=== PATIENT | male | born 1960 | race Caucasian/White ===

== ENCOUNTER 2017-08-11 17:04 | Inpatient (IN) | payer OTHER ==
[~2017-08-11] VITALS: Ht 182.9 cm; Wt 113.4 kg
[2017-08-11] VITALS (7 sets, daily range): BP systolic 155–176; BP diastolic 73–101; PULSE 90–104; RESP 20–24; TEMP 98.1–98.8; O2SAT 95–98
[~2017-08-11 17:04] MED LIST: ASPI81TA82 PO; DIPH50TA PO; FLUV100C PO; GLIP5 PO; HYDR12.56 PO; HYDR1CAP30 PO; LOSA100T PO; METF500 PO; NICO2GUM68 TOP; ONDA4TAB7 PO; PRAV40TA2 PO; TRIA0.02 TOP
[2017-08-11] MEDS ORDERED: SODIUM CHLOR 0.9% 1000 ML INJ 1,000 ML IV ONE (17:22)
--- NOTE | 2017-08-11 17:27 | PD ---
HPI Chief Complaint: GI Complaint Time Seen by Provider: 17:11 Travel History International Travel<30 days: No Contact w/Intl Traveler<30days: No Traveled to known affect area: No History of Present Illness HPI 57-year-old male presents to the emergency department via EMS sent from the [facility]. Apparently, the patient had lab work and a routine visit done yesterday at the [facility]. He went back today for evaluation nausea and vomiting since Wednesday. He reports 3 episodes of vomiting in the past 24 hours. He was sent here for abnormal labs. I was told that he was here rhabdomyolysis, but review of labs shows creatinine of 7.9. Cardiac EMS, her blood sugar 45 on their arrival. They gave him amp of D50. The patient reports history of diabetes and is on metformin and glipizide. He has been taking his medications recently, but has not been eating due to nausea and vomiting. He states that he has been laying in bed and states this is due to his depression. Patient denies any headache. No fevers or chills. He denies any chest pain or shortness of breath. He denies any abdominal pain. He states his bowels have been irregular. He reports one bowel movement this morning which was smaller than normal, but no blood in his stool. Patient reports history of diabetes type 2, hypertension, hyperlipidemia, depression. PFSH Past Medical History Anxiety: Yes Depression: Yes High Cholesterol: Yes Diabetes: Yes Hypertension: Yes Triglycerides - High: Yes Social History Alcohol Use: No Tobacco Use: No (QUIT 1986) Substance Use: No (PATIENT DENIES) Allergies-Medications (Allergen,Severity, Reaction): Coded Allergies: lisinopril (Unverified Adverse Reaction, Intermediate, DIZZINESS, 05/25/17) Per pt & [facility] paperwork. Reported Meds & Prescriptions Reported Meds & Active Scripts Active Reported Triamcinolone Acetonide 0.025 % Cre 1 Applic TOP BID APPLY TO : Ondansetron Odt (Ondansetron HCl) 4 Mg Tab 4 Mg PO Q8HR PRN Hydroxyzine Pamoate 25 Mg Cap 25 Mg PO HS Glipizide 5 Mg Tab 2.5 Mg PO BID Clotrimazole Antifungal (Clotrimazole) 1 %/F Cre 1 Applic TOP ONCE APPLY TO: Diphenhydramine Hcl (Diphenhydramine HCl) 50 Mg Cap 50 Mg PO HS PRN Glucophage 500 mg (Metformin HCl) 500 Mg Tab 1,000 Mg PO BIDPC Losartan Potassium 100 MG (Losartan Potassium) 100 Mg Tab 0.5 Tab PO HS Fluvoxamine Maleate ER (Fluvoxamine Maleate) 100 Mg Cap 100 Mg PO DIRECTED Fluvoxamine Maleate 50mg tab - take 3x tablets PO daily for 7 days, then take 4x tablets PO daily for Depression. Aspir-81 (Aspirin) 81 Mg Tab 81 Mg PO DAILY Pravastatin Sodium 40 Mg Tab 80 Mg PO HS Hctz (Hydrochlorothiazide) 12.5 Mg Cap 12.5 Mg PO DAILY Review of Systems Except as stated in HPI: all other systems reviewed are Neg Physical Exam Narrative GENERAL: Well-nourished, well-developed male patient, ambulatory. Afebrile. SKIN: Focused skin assessment warm/dry. HEAD: Normocephalic. Atraumatic. EYES: No scleral icterus. No injection or drainage. NECK: Supple, trachea midline. No JVD or lymphadenopathy. CARDIOVASCULAR: Regular rate and rhythm without murmurs, gallops, or rubs. RESPIRATORY: Breath sounds equal bilaterally. No accessory muscle use. Lungs sounds are clear to auscultation. GASTROINTESTINAL: Abdomen soft, non-tender, nondistended. No abdominal pain to palpation. MUSCULOSKELETAL: No cyanosis, or edema. BACK: Nontender without obvious deformity. No CVA tenderness. Data Data Last Documented VS Vital Signs Date Time Temp Pulse Resp B/P (MAP) Pulse Ox O2 Delivery O2 Flow Rate FiO2 08/11/17 18:22 93 21 176/101 (126) 95 Room Air 08/11/17 17:11 98.4 Orders Orders Electrocardiogram (08/11/17 17:22) Complete Blood Count With Diff (08/11/17 17:22) Comprehensive Metabolic Panel (08/11/17 17:22) Magnesium (Mg) (08/11/17 17:22) Urinalysis - C+S If Indicated (08/11/17 17:22) Chest, Single Ap (08/11/17 17:22) Blood Glucose (08/11/17 17:22) Ecg Monitoring (08/11/17 17:22) Iv Access Insert/Monitor (08/11/17 17:22) Oximetry (08/11/17 17:22) Ondansetron Inj (Zofran Inj) (08/11/17 17:30) Sodium Chloride 0.9% Flush (Ns Flush) (08/11/17 17:30) Sodium Chlor 0.9% 1000 Ml Inj (Ns 1000 M (08/11/17 17:22) Creatine Kinase (Cpk) (08/11/17 17:22) Dextrose 50% In Jessica (Vial) Inj (D50w (Vi (08/11/17 18:16) Dextrose 50% In Jessica (Syr) Inj (D50w (Syr (08/11/17 18:30) Dextrose 5% In Wate 1000ml Inj (D5w 1000 (08/11/17 18:30) Urinary Catheter Insert/Apply (08/11/17 18:31) Labs Laboratory Tests Test 08/11/17 17:25 White Blood Count 15.0 TH/MM3 Red Blood Count 4.73 MIL/MM3 Hemoglobin 13.8 GM/DL Hematocrit 41.3 % Mean Corpuscular Volume 87.2 FL Mean Corpuscular Hemoglobin 29.1 PG Mean Corpuscular Hemoglobin Concent 33.4 % Red Cell Distribution Width 13.7 % Platelet Count 245 TH/MM3 Mean Platelet Volume 9.2 FL Neutrophils (%) (Auto) 89.3 % Lymphocytes (%) (Auto) 5.5 % Monocytes (%) (Auto) 5.0 % Eosinophils (%) (Auto) 0.0 % Basophils (%) (Auto) 0.2 % Neutrophils # (Auto) 13.3 TH/MM3 Lymphocytes # (Auto) 0.8 TH/MM3 Monocytes # (Auto) 0.8 TH/MM3 Eosinophils # (Auto) 0.0 TH/MM3 Basophils # (Auto) 0.0 TH/MM3 CBC Comment DIFF FINAL Differential Comment Blood Urea Nitrogen 63 MG/DL Creatinine 10.07 MG/DL Random Glucose 36 MG/DL Total Protein 7.4 GM/DL Albumin 3.4 GM/DL Calcium Level 9.1 MG/DL Magnesium Level 2.1 MG/DL Alkaline Phosphatase 53 U/L Aspartate Amino Transf (AST/SGOT) 17 U/L Alanine Aminotransferase (ALT/SGPT) 25 U/L Total Bilirubin 0.4 MG/DL Sodium Level 134 MEQ/L Potassium Level 5.1 MEQ/L Chloride Level 98 MEQ/L Carbon Dioxide Level 17.2 MEQ/L Anion Gap 19 MEQ/L Estimat Glomerular Filtration Rate 5 ML/MIN Total Creatine Kinase 122 U/L MDM Medical Decision Making Medical Screen Exam Complete: Yes Emergency Medical Condition: Yes Medical Record Reviewed: Yes Interpretation(s) chest x-ray - CONCLUSION: No acute disease. Differential Diagnosis Abnormal labs versus acute kidney injury versus acute renal failure versus dehydration Narrative Course 57-year-old male presents to the emergency department sent by the [facility] for nausea and vomiting since Wednesday, 4 days ago. Apparently, their lab work, creatinine was elevated. Patient was found to be hypoglycemic and was given amp of D50 by EMS. EKG, CBC, CMP, magnesium, UA, CK are ordered and pending. Patient is given normal saline 1 L IV bolus, Zofran 4 mg IV. Recheck of blood glucose is 73. Patient is given meal to raise blood glucose. EKG shows SR, HR 99. CBC shows leukocytosis of 15.0. CMP shows carbon dioxide 17.2, anion gap 19, BUN 63, creatinine 10.07, glucose 36. Magnesium is 2.1. CK is 122. Chest x-ray shows no acute disease. Recheck of blood glucose is 27. Patient is given another amp of D50 and is started on a D5 drip. Albarado is ordered. Patient will be admitted to intensivists. Dr. Kent accepted admission. Diagnosis Primary Impression: Acute renal failure Qualified Codes: N17.9 - Acute kidney failure, unspecified Additional Impression: Hypoglycemia Admitting Information Admitting Physician Requests: Admit Sonia Cruz Aug 11, 2017 17:27
[2017-08-11] MEDS ORDERED: ONDANSETRON HCL 4 MG/2 ML VIAL IVP ONE (17:30)
[2017-08-11] MEDS ORDERED: SODIUM CHLORIDE 0.9% FLUSH 10 ML FLUSH IVF PRN (17:30)
[2017-08-11 17:54] LABS: AUTOMATED NEUTROPHIL # 13.3 TH/MM3 (1.8-7.7); BASOPHIL % 0.2 % (0.0-2.0); HEMATOCRIT 41.3 % (39.0-51.0); HEMOGLOBIN 13.8 GM/DL (13.0-17.0); LYMPH % 5.5 % (9.0-44.0); LYMPHOCYTE # 0.8 TH/MM3 (1.0-4.8); MEAN CELL VOLUME 87.2 FL (80.0-100.0); MEAN CORPUSCULAR HEMOGLOBIN 29.1 PG (27.0-34.0); MEAN CORPUSCULAR HGB CONC 33.4 % (32.0-36.0); MEAN PLATELET VOLUME 9.2 FL (7.0-11.0); MONOCYTE # 0.8 TH/MM3 (0-0.9); NEUT % 89.3 % (16.0-70.0); PLATELET COUNT 245 TH/MM3 (150-450); RED BLOOD COUNT 4.73 MIL/MM3 (4.50-5.90); RED CELL DISTRIBUTION WIDTH 13.7 % (11.6-17.2)
[2017-08-11] MEDS ORDERED: DEXTROSE 50% IN WATER 50 ML VIAL(D50) ONE (18:16)
--- NOTE | 2017-08-11 18:17 | RADRPT ---
EXAM DATE/TIME: 08/11/2017 17:35 [facility] COMPARISON: No previous studies available for comparison. INDICATIONS : Short of breath. MEDICAL HISTORY : Hypertension. Hypercholesterolemia. Diabetic. SURGICAL HISTORY : None. ENCOUNTER: Initial ACUITY: 1 day PAIN SCORE: Non-responsive. LOCATION: Bilateral chest FINDINGS: A single view of the chest demonstrates the lungs to be symmetrically aerated without evidence of mas s, infiltrate or effusion. The cardiomediastinal contours are unremarkable. Osseous structures are intact. There are overlying electrocardiogram leads and oxygen tubing. CONCLUSION: No acute disease. Javon Garcia MD on August 11, 2017 at 18:15 Board Certified Radiologist. This report was verified electronically.
[2017-08-11 18:24] LABS: ALBUMIN 3.4 GM/DL (3.4-5.0); ALKALINE PHOSPHATASE 53 U/L (45-117); ALT (GPT) 25 U/L (12-78); AST (GOT) 17 U/L (15-37); BICARBONATE 17.2 MEQ/L (21.0-32.0); BLOOD UREA NITROGEN 63 MG/DL (7-18); CALCIUM 9.1 MG/DL (8.5-10.1); CHLORIDE 98 MEQ/L (98-107); GLOMERULAR FILTRATION RATE 5 ML/MIN (>89); MAGNESIUM 2.1 MG/DL (1.5-2.5); SODIUM (NA) 134 MEQ/L (136-145); TOTAL BILIRUBIN ADULT 0.4 MG/DL (0.2-1.0); TOTAL PROTEIN 7.4 GM/DL (6.4-8.2)
[2017-08-11 18:29] LABS: CREATININE 10.07 MG/DL (0.60-1.30); GLUCOSE,RANDOM 36 MG/DL (74-106)
[2017-08-11] MEDS ORDERED: DEXTROSE 5% IN WATE 1000ML INJ 1,000 ML IV SCH (18:30)
[2017-08-11] MEDS ORDERED: DEXTROSE 50% IN WATER 50 ML SYRINGE IV PUSH ONE (18:30)
[2017-08-11] MEDS ORDERED: FLUT50SP EACH NARE (18:35)
[2017-08-11] MEDS ORDERED: GLIP5TAB8 PO (18:35)
[2017-08-11] MEDS ORDERED: RANI150T PO (18:35)
[2017-08-11] MEDS ORDERED: HYDR12.56 PO (18:35)
[2017-08-11] MEDS ORDERED: METF1000 PO (18:35)
[2017-08-11] MEDS ORDERED: PRAV80TA2 PO (18:35)
[2017-08-11] MEDS ORDERED: LOSA50TA PO (18:35)
[2017-08-11] MEDS ORDERED: RISP2TAB2 PO (18:35)
[2017-08-11] MEDS ORDERED: FLUO20CA12 PO (18:35)
[2017-08-11] MEDS ORDERED: SODIUM CHLOR 0.9% 1000 ML INJ 1,000 ML IV SCH (19:01)
--- NOTE | 2017-08-11 19:10 | HHI.HP ---
[facility] Service Critical Care Medicine [facility] Diagnosis Acute renal failure; hypoglycemia Diagnosis: Travel History International Travel<30 Days: No Contact w/Intl Traveler <30 Da: No Traveled to Known Affected Are: No History of Present Illness 57-year-old male presents from the where he had a lab work and a routine visit done yesterday. He went back today for evaluation nausea and vomiting since Wednesday. He reports 3 episodes of vomiting in the past 24 hours. He was told that he has rhabdomyolysis and was sent here to the emergency department. He was also found to be severely hypoglycemic with a blood sugar at 45. The patient reports history of diabetes and is on metformin and glipizide. He has been taking his medications, but has not been eating due to nausea and vomiting. He states that he has been laying in bed and states this is due to his depression. Patient denies any headache. No fevers or chills. He denies any chest pain or shortness of breath. He denies any abdominal pain. Review of Systems Constitutional: COMPLAINS OF: Change in appetite, DENIES: Diaphoretic episodes , Fatigue, Fever, Weight gain, Weight loss, Chills, Dizziness, Night Sweats Endocrine: DENIES: Heat/cold intolerance, Polydipsia, Polyuria, Polyphagia Eyes: DENIES: Blurred vision, Diplopia, Eye inflammation, Eye pain, Vision loss , Photosensitivity, Double Vision Ears, nose, mouth, throat: DENIES: Tinnitus, Hearing loss, Vertigo, Nasal discharge, Oral lesions, Throat pain, Hoarseness, Ear Pain, Running Nose, Epistaxis, Sinus Pain, Toothache, Odynophagia Respiratory: DENIES: Apneas, Cough, Snoring, Wheezing, Hemoptysis, Sputum production, Shortness of breath Cardiovascular: DENIES: Chest pain, Palpitations, Syncope, Dyspnea on Exertion , PND, Lower Extremity Edema, Orthopnea, Claudication Gastrointestinal: COMPLAINS OF: Nausea, Vomiting, Anorexia, DENIES: Abdominal pain, Black stools, Bloody stools, Constipation, Diarrhea, Difficulty Swallowing Genitourinary: DENIES: Sexual dysfunction, Urinary frequency, Urinary incontinence, Urgency, Hematuria, Dysuria, Nocturia, Penile Discharge, Testicular Pain, Testicular Swelling Musculoskeletal: DENIES: Joint pain, Muscle aches, Stiffness, Joint Swelling, Back pain, Neck pain Integumentary: DENIES: Abnormal pigmentation, Nail changes, Pruritus, Rash Hematologic/lymphatic: DENIES: Bruising, Lymphadenopathy Immunologic/allergic: DENIES: Eczema, Urticaria Neurologic: DENIES: Abnormal gait, Headache, Localized weakness, Paresthesias, Seizures, Speech Problems, Tremor, Poor Balance Psychiatric: DENIES: Anxiety, Confusion, Mood changes, Depression, Hallucinations, Agitation, Suicidal Ideation, Homicidal Ideation, Delusions Past Family Social History Allergies: Coded Allergies: lisinopril (Unverified Adverse Reaction, Intermediate, DIZZINESS, 08/11/17) [facility]. Past Medical History Anxiety Depression High Cholesterol Diabetes Hypertension Past Surgical History None Reported Medications Reported Meds & Active Scripts Active Reported Risperidone 2 Mg Tab 2 Mg PO HS Ranitidine (Ranitidine HCl) 150 Mg Tab 150 Mg PO BID Pravastatin 80 Mg Tab 80 Mg PO HS Metformin (Metformin HCl) 1,000 Mg Tab 1,000 Mg PO BIDPC Losartan (Losartan Potassium) 50 Mg Tab 50 Mg PO DAILY Hydrochlorothiazide 12.5 Mg Tab 12.5 Mg PO DAILY Glipizide 5 Mg Tab 2.5 Mg PO BIDAC Take 30 minutes before a meal Fluticasone Nasal [place] 50 Mcg/Act Naspr 50 Mcg EACH NARE BID 50 mcg/spray Fluoxetine (Fluoxetine HCl) 20 Mg Capsule 40 Mg PO DAILY Active Ordered Medications Current Medications Medications (Trade) Dose Ordered Sig/Brenda Route PRN Reason Start Time Stop Time Status Last Admin Dose Admin Fluoxetine HCl (PROzac) 40 mg DAILY PO 08/12/17 09:00 Fluticasone Propionate (Flonase Yared Spr) 1 spray BID EACH NARE 08/11/17 21:00 Pravastatin Sodium (Pravachol) 80 mg HS PO 08/11/17 21:00 Famotidine (Pepcid) 10 mg BID PO 08/11/17 21:00 Risperidone (risperDAL) 2 mg HS PO 08/11/17 21:00 Sodium Chloride (NS Flush) 2 ml UNSCH PRN IV FLUSH FLUSH AFTER USING IV ACCESS 08/11/17 19:15 Sodium Chloride (NS Flush) 2 ml BID IV FLUSH 08/11/17 21:00 Acetaminophen (Tylenol) 650 mg Q6H PRN PO PAIN 1-10 AND/OR FEVER >101F 08/11/17 19:15 Ondansetron HCl (Zofran Inj) 4 mg Q6H PRN IV PUSH NAUSEA OR VOMITING 08/11/17 19:15 Zolpidem Tartrate (Ambien) 5 mg HS PRN PO INSOMNIA 08/11/17 19:15 Heparin Sodium (Porcine) (Heparin Inj) 5,000 units Q8H SQ 08/11/17 22:00 Miscellaneous Information 1 [id number] 08/11/17 19:15 Chlorhexidine Gluconate (Chlorhexidine 2% Cloth) 3 pack Taper DAILY@04 TOP 08/12/17 04:00 08/08/18 03:59 Chlorhexidine Gluconate (Chlorhexidine 2% Cloth) 3 pack UNSCH PRN TOP HYGIENIC CARE 08/11/17 19:15 Senna/Docusate Sodium (Mara-Colace) 1 tab BID PO 08/11/17 21:00 Magnesium Hydroxide (Milk Of Magnesia Liq) 30 ml Q12H PRN PO Mild constipation 08/11/17 19:15 Sennosides (Senokot) 17.2 mg Q12H PRN PO Moderate constipation 08/11/17 19:15 Bisacodyl (Dulcolax Supp) 10 mg DAILY PRN RECTAL SEVERE CONSITIPATION 08/11/17 19:15 Lactulose (Lactulose Liq) 30 ml DAILY PRN PO SEVERE CONSITIPATION 08/11/17 19:15 Sodium Bicarbonate 150 meq/Dextrose 1,150 ml @ 75 mls/hr [id number] IV 08/11/17 20:00 08/11/17 20:13 Miscellaneous (Pill Splitter) 1 ea UNSCH PRN OTHER SEE LABEL COMMENTS 08/11/17 19:45 Dextrose 1,000 ml @ 50 mls/hr Q20H IV 08/11/17 21:00 UNV Family History No family history significant for coronary artery disease Social History Alcohol Use: No Tobacco Use: No (QUIT 1986) Substance Use: No Physical Exam Vital Signs Vital Signs Date Time Temp Pulse Resp B/P (MAP) Pulse Ox O2 Delivery O2 Flow Rate FiO2 08/11/17 18:22 93 21 176/101 (126) 95 Room Air 08/11/17 17:11 98.4 98 22 155/77 (103) 98 Physical Exam GENERAL: Morbidly obese male SKIN: Warm and dry. HEAD: Normocephalic. EYES: No scleral icterus. No injection or drainage. NECK: Supple, trachea midline. No JVD or lymphadenopathy. CARDIOVASCULAR: Regular rate and rhythm without murmurs, gallops, or rubs. RESPIRATORY: Breath sounds equal bilaterally. No accessory muscle use. GASTROINTESTINAL: Abdomen soft, non-tender, nondistended. MUSCULOSKELETAL: No cyanosis, or edema. BACK: Nontender without obvious deformity. NEURO EXAM: Mental Status: The patient is alert and oriented to person, place, and time with normal speech. Cranial Nerves: Visual acuity intact bilaterally. Pupils are round, reactive to light. Extraocular movements are intact without ptosis. Hearing is normal bilaterally. Voice is normal. Tongue protrudes midline and moves symmetrically. Reflexes: Biceps, patellar, and Achilles are 2/4 bilaterally. No clonus. Laboratory Laboratory Tests Test 08/11/17 17:25 White Blood Count 15.0 Red Blood Count 4.73 Hemoglobin 13.8 Hematocrit 41.3 Mean Corpuscular Volume 87.2 Mean Corpuscular Hemoglobin 29.1 Mean Corpuscular Hemoglobin Concent 33.4 Red Cell Distribution Width 13.7 Platelet Count 245 Mean Platelet Volume 9.2 Neutrophils (%) (Auto) 89.3 Lymphocytes (%) (Auto) 5.5 Monocytes (%) (Auto) 5.0 Eosinophils (%) (Auto) 0.0 Basophils (%) (Auto) 0.2 Neutrophils # (Auto) 13.3 Lymphocytes # (Auto) 0.8 Monocytes # (Auto) 0.8 Eosinophils # (Auto) 0.0 Basophils # (Auto) 0.0 CBC Comment DIFF FINAL Differential Comment Blood Urea Nitrogen 63 Creatinine 10.07 Random Glucose 36 Total Protein 7.4 Albumin 3.4 Calcium Level 9.1 Magnesium Level 2.1 Alkaline Phosphatase 53 Aspartate Amino Transf (AST/SGOT) 17 Alanine Aminotransferase (ALT/SGPT) 25 Total Bilirubin 0.4 Sodium Level 134 Potassium Level 5.1 Chloride Level 98 Carbon Dioxide Level 17.2 Anion Gap 19 Estimat Glomerular Filtration Rate 5 Total Creatine Kinase 122 Result Diagram: 08/11/175 08/11/175 Caprini VTE Risk Assessment Caprini VTE Risk Assessment: Mod/High Risk (score >= 2) Caprini Risk Assessment Model Point Value = 1 Point Value = 2 Point Value = 3 Point Value = 5 Age 41-60 Minor surgery BMI > 25 kg/m2 Swollen legs Varicose veins or History of unexplained or recurrent spontaneous Oral contraceptives or hormone replacement Sepsis (< 1 month) Serious lung disease, including pneumonia (< 1 month) Abnormal pulmonary function Acute myocardial infarction Congestive heart failure (< 1 month) History of inflammatory bowel disease Medical patient at bed rest Age 61-74 Arthroscopic surgery Major open surgery (> 45 min) Laparoscopic surgery (> 45 min) Malignancy Confined to bed (> 72 hours) Immobilizing plaster cast Central venous access Age >= 75 History of VTE Family history of VTE Factor V Leiden Prothrombin [id number] Lupus anticoagulant Anticardiolipin antibodies Elevated serum homocysteine Heparin-induced thrombocytopenia Other congenital or acquired thrombophilia Stroke (< 1 month) Elective arthroplasty Hip, pelvis, or leg fracture Acute spinal cord injury (< 1 month) Prophylaxis Regimen Total Risk Factor Score Risk Level Prophylaxis Regimen 0-1 Low Early ambulation 2 Moderate Order ONE of the following: *Sequential Compression Device (SCD) *Heparin 5000 units SQ BID 3-4 Higher Order ONE of the following medications: *Heparin 5000 units SQ TID *Enoxaparin/Lovenox 40 mg SQ daily (WT < 150 kg, CrCl > 30 mL/min) *Enoxaparin/Lovenox 30 mg SQ daily (WT < 150 kg, CrCl > 10-29 mL/min) *Enoxaparin/Lovenox 30 mg SQ BID (WT < 150 kg, CrCl > 30 mL/min) AND/OR *Sequential Compression Device (SCD) 5 or more Highest Order ONE of the following medications: *Heparin 5000 units SQ TID (Preferred with Epidurals) *Enoxaparin/Lovenox 40 mg SQ daily (WT < 150 kg, CrCl > 30 mL/min) *Enoxaparin/Lovenox 30 mg SQ daily (WT < 150 kg, CrCl > 10-29 mL/min) *Enoxaparin/Lovenox 30 mg SQ BID (WT < 150 kg, CrCl > 30 mL/min) AND *Sequential Compression Device (SCD) Assessment and Plan Assessment and Plan Acute kidney injury - IV hydration - Strict I's and O's - Nephrology consult - Ultrasound of kidneys - Monitor electrolytes and creatinine level Diabetes mellitus - Hold all diabetic medications due to severe hypoglycemia - Insulin sliding scale when indicated Hypoglycemia - D10 infusion - D50 when necessary - Hold home meds Anxiety/Depression - Fluoxetine - Risperidone High Cholesterol - Pravastatin Hypertension - Currently normotensive - Will use when necessary meds when indicated DVT GI prophylaxis - Teds SCDs - Subcutaneous heparin - Pepcid Critical Care: The total critical care time was 35 minutes. Time to perform other separately billable procedures was not included in the critical care time. Rivas Kent MD Aug 11, 2017 7:10 pm
[2017-08-11] MEDS ORDERED: SENNOSIDES 8.6 MG TAB PO PRN (19:15)
[2017-08-11] MEDS ORDERED: ZOLPIDEM TARTRATE 5 MG TAB PO PRN (19:15)
[2017-08-11] MEDS ORDERED: ACETAMINOPHEN 325 MG TAB PO PRN (19:15)
[2017-08-11] MEDS ORDERED: MISCELLANEOUS NURSING INFORMATION XX SCH (19:15)
[2017-08-11] MEDS ORDERED: SODIUM CHLORIDE 0.9% FLUSH 10 ML FLUSH IV FLUSH PRN (19:15)
[2017-08-11] MEDS ORDERED: BISACODYL 10 MG SUPP RECTAL PRN (19:15)
[2017-08-11] MEDS ORDERED: CHLORHEXIDINE GLUCONATE 2 % 1 PACK (2 CLOTHS) TOP PRN (19:15)
[2017-08-11] MEDS ORDERED: LACTULOSE SYRUP 20 GM/30 ML CUP PO PRN (19:15)
[2017-08-11] MEDS ORDERED: MAGNESIUM HYDROXIDE SUSP 30 ML CUP PO PRN (19:15)
[2017-08-11 19:18] LABS: AMORPHOUS SEDIMENT, URINE RARE; BACTERIA, URINE OCC /hpf; BILIRUBIN, URINE NEG (NEG); BLOOD, URINE MOD (NEG); GLUCOSE,URINE NEG (NEG); KETONE, URINE NEG (NEG); NITRITE,URINE NEG (NEG); SQUAMOUS EPITHELIAL CELL URINE 1 /hpf (0-5); URINE COLOR LIGHT-YELLOW (YELLW/STRAW); URINE LEUKOCYTE ESTERASE NEG (NEG)
[2017-08-11] MEDS ORDERED: PILL SPLITTER OTHER PRN (19:45)
[2017-08-11] MEDS: SODIUM BICARBONATE 8.4% INJ 150 MEQ in DEXTROSE 5% IN WATE 1000ML INJ 1,000 ML IV SCH ×2 (20:13)
[2017-08-11] MEDS: DEXTROSE 50% IN WATER 50 ML SYRINGE IV PRN ×4 (20:50→23:03)
[2017-08-11] MEDS: FLUTICASONE PROPIONATE 50 MCG/ACT 16 GM NASAL SPRAY EACH NARE SCH (21:00)
[2017-08-11] MEDS: SODIUM CHLORIDE 0.9% FLUSH 10 ML FLUSH IV FLUSH SCH (21:35)
[2017-08-11] MEDS: PRAVASTATIN SOD 80 MG TAB PO SCH (21:37)
[2017-08-11] MEDS: DOCUSATE SODIUM 50 MG/SENNA 8.6 MG TAB PO SCH (21:37)
[2017-08-11] MEDS: risperiDONE 1 MG TAB PO SCH (21:37)
[2017-08-11] MEDS: FAMOTIDINE 20 MG TAB PO SCH (21:37)
[2017-08-11] MEDS: CHLORHEXIDINE GLUCONATE 2 % 1 PACK (2 CLOTHS) TOP SCH (21:37)
[2017-08-11] MEDS: DEXTROSE 10% INJ 1,000 ML IV SCH (21:38)
[2017-08-11] MEDS: HEPARIN SODIUM - SQ 10,000 UNITS/ML VIAL SQ SCH (21:38)
[2017-08-12] VITALS (13 sets, daily range): BP systolic 119–154; BP diastolic 63–73; PULSE 87–101; RESP 33–83; TEMP 97.9–98.9; O2SAT 93–97
[2017-08-12] MEDS: DEXTROSE 50% IN WATER 50 ML SYRINGE IV PRN ×6 (00:45→08:20)
[2017-08-12] MEDS ORDERED: DEXTROSE 50% IN WATER 50 ML SYRINGE ONE (01:39)
[2017-08-12] MEDS ORDERED: DEXTROSE 50% IN WATER 50 ML VIAL(D50) IV PUSH PRN (01:45)
[2017-08-12] MEDS: ONDANSETRON HCL 4 MG/2 ML VIAL IV PUSH PRN ×3 (01:51→17:32)
[2017-08-12 02:12] LABS: AUTOMATED NEUTROPHIL # 13.1 TH/MM3 (1.8-7.7); BASOPHIL % 0.1 % (0.0-2.0); HEMATOCRIT 39.5 % (39.0-51.0); LYMPH % 4.6 % (9.0-44.0); LYMPHOCYTE # 0.7 TH/MM3 (1.0-4.8); MEAN CELL VOLUME 86.5 FL (80.0-100.0); MEAN CORPUSCULAR HEMOGLOBIN 28.5 PG (27.0-34.0); MEAN CORPUSCULAR HGB CONC 32.9 % (32.0-36.0); MEAN PLATELET VOLUME 8.7 FL (7.0-11.0); MONO % 7.4 % (0.0-8.0); MONOCYTE # 1.1 TH/MM3 (0-0.9); NEUT % 87.9 % (16.0-70.0); PLATELET COUNT 228 TH/MM3 (150-450); RED BLOOD COUNT 4.56 MIL/MM3 (4.50-5.90); RED CELL DISTRIBUTION WIDTH 13.9 % (11.6-17.2); WHITE BLOOD COUNT 14.9 TH/MM3 (4.0-11.0)
[2017-08-12 02:32] LABS: ALKALINE PHOSPHATASE 46 U/L (45-117); ALT (GPT) 22 U/L (12-78); AST (GOT) 17 U/L (15-37); BICARBONATE 19.8 MEQ/L (21.0-32.0); BLOOD UREA NITROGEN 64 MG/DL (7-18); CALCIUM 8.3 MG/DL (8.5-10.1); CHLORIDE 97 MEQ/L (98-107); CREATININE 9.54 MG/DL (0.60-1.30); GLOMERULAR FILTRATION RATE 6 ML/MIN (>89); MAGNESIUM 1.9 MG/DL (1.5-2.5); PHOSPHORUS 6.1 MG/DL (2.5-4.9); SODIUM (NA) 135 MEQ/L (136-145); TOTAL BILIRUBIN ADULT 0.4 MG/DL (0.2-1.0); TOTAL PROTEIN 6.4 GM/DL (6.4-8.2); TROPONIN I 0.27 NG/ML (0.02-0.05)
[2017-08-12 02:34] LABS: GLUCOSE,RANDOM 31 MG/DL (74-106)
[2017-08-12] MEDS: HEPARIN SODIUM - SQ 10,000 UNITS/ML VIAL SQ SCH ×3 (06:00→21:40)
[2017-08-12] MEDS: DEXTROSE 10% INJ 1,000 ML IV SCH (06:16)
[2017-08-12] MEDS: SODIUM CHLORIDE 0.9% FLUSH 10 ML FLUSH IV FLUSH SCH ×2 (08:20→21:40)
[2017-08-12] MEDS: FAMOTIDINE 20 MG TAB PO SCH ×2 (08:27→21:40)
[2017-08-12] MEDS: DOCUSATE SODIUM 50 MG/SENNA 8.6 MG TAB PO SCH ×2 (08:27→21:42)
[2017-08-12] MEDS: FLUoxetine HCL 20 MG CAP PO SCH (08:57)
[2017-08-12] MEDS: FLUTICASONE PROPIONATE 50 MCG/ACT 16 GM NASAL SPRAY EACH NARE SCH ×2 (09:00→21:00)
--- NOTE | 2017-08-12 13:37 | EKG ---
Date Performed: 08/11/2017 Time Performed: 18:06:43 PTAGE: 57 years EKG: Sinus rhythm MARKED LEFT AXIS DEVIATION LOW QRS VOLTAGE IN PRECORDIAL LEADS POSSIBLE RIGHT VENTRICULAR CONDUCTION DELAY MINIMAL ST DEPRESSION LOSS OF VOLTAGE WITH DIFFUSE ST T WAVE CHANGES IS NEW SINCE THE PRIOR TR ACING Clinical correlation is recommended ABNORMAL ECG PREVIOUS TRACING : 12/30/2012 11.21 DOCTOR: Prudencio Dao Interpretating Date/Time 08/12/2017 13:36:49
--- NOTE | 2017-08-12 13:39 | EKG ---
Date Performed: 08/12/2017 Time Performed: 01:10:00 PTAGE: 57 years EKG: Sinus rhythm . Left axis deviation Low QRS voltages in precordial leads Compared to prior tracing no significant c hange Abnormal ECG PREVIOUS TRACING : 08/11/2017 18.06 DOCTOR: Prudencio Dao Interpretating Date/Time 08/12/2017 13:37:57
[2017-08-12] MEDS: SODIUM BICARBONATE 8.4% INJ 150 MEQ in DEXTROSE 5% IN WATE 1000ML INJ 1,000 ML IV SCH ×2 (13:58)
--- NOTE | 2017-08-12 14:16 | RADRPT ---
EXAM DATE/TIME: 08/12/2017 13:22 [facility] COMPARISON: No previous studies available for comparison. INDICATIONS : Increased BUN/Creatinine. MEDICAL HISTORY : Hypercholesterolemia. Hypertension. Hyperlipidemia. Diabetes. Anxiety. Depression. SURGICAL HISTORY : None. ENCOUNTER: Initial ACUITY: 1 day PAIN SCORE: 4/10 LOCATION: Bilateral flank MEASUREMENTS: RIGHT KIDNEY: 14.9 x 5.7 x 7.6 cm LEFT KIDNEY: 15.7 x6.7 x 7.7 cm FINDINGS: Ultrasound of the kidneys demonstrate normal size shape and echogenicity. No hydronephrosis or mass l esions are identified. Albarado catheters present within the bladder though the volume is 500 cc. Correl ation with the Albarado catheter function is necessary CONCLUSION: 1. Unremarkable ultrasound examination of the kidneys. 2. Bladder distention despite Albarado catheter placement as above Lj Benavides MD on August 12, 2017 at 14:13 Board Certified Radiologist. This report was verified electronically.
[2017-08-12] MEDS: DEXTROSE 10% INJ 500 ML IV SCH ×4 (14:45→23:57)
[2017-08-12 18:08] LABS: BICARBONATE 27.7 MEQ/L (21.0-32.0); CALCIUM 7.9 MG/DL (8.5-10.1); CREATININE 9.17 MG/DL (0.60-1.30); MAGNESIUM 1.8 MG/DL (1.5-2.5)
--- NOTE | 2017-08-12 19:08 | HHI.CCPN ---
Subjective Remarks/Hospital Course Hospital Course: 57-year-old male presents from the where he had a lab work and a routine visit done yesterday. He went back today for evaluation nausea and vomiting since Wednesday. He reports 3 episodes of vomiting in the past 24 hours. He was told that he has rhabdomyolysis and was sent here to the emergency department. He was also found to be severely hypoglycemic with a blood sugar at 45. The patient reports history of diabetes and is on metformin and glipizide. He has been taking his medications, but has not been eating due to nausea and vomiting. He states that he has been laying in bed and states this is due to his depression. Patient denies any headache. No fevers or chills. He denies any chest pain or shortness of breath. He denies any abdominal pain. Subjective: 08/12: patient subjectively feels better. awaiting nephrology recommendations. on d10w infusion but blood sugars starting to improve. some nausea, but he states this is better. denies any abdominal pain. no diarrhea. no other associated symptoms. Objective Vital Signs Date Time Temp Pulse Resp B/P (MAP) Pulse Ox O2 Delivery O2 Flow Rate FiO2 08/12/17 16:00 88 08/12/17 16:00 98.3 38 126/63 (84) 95 08/11/17 21:16 Nasal Cannula 2.00 Intake and Output 08/12/17 08/12/17 08/13/17 08:00 16:00 00:00 Intake Total 1200 ml 1195 ml Output Total 1300 ml 2275 ml Balance -100 ml -1080 ml Result Diagram: 08/12/17 0147 08/12/17 1715 Objective Remarks GENERAL: Morbidly obese male SKIN: Warm and dry. HEAD: Normocephalic. EYES: No scleral icterus. No injection or drainage. NECK: trachea midline. No JVD CARDIOVASCULAR: Regular rate and rhythm RESPIRATORY: unlabored. equal chest rise. GASTROINTESTINAL: Abdomen soft, non-tender, nondistended. MUSCULOSKELETAL: No cyanosis, or edema. NEURO EXAM: RASS 0. CAM -. GCS 15. no focal deficits. : roldan with large amount of clear yellow urine. A/P Assessment and Plan Acute kidney injury - IV hydration - Strict I's and O's - Nephrology consult - Ultrasound of kidneys: no hydro. - Monitor electrolytes and creatinine level Diabetes mellitus - Hold all diabetic medications due to severe hypoglycemia - Insulin sliding scale when indicated Hypoglycemia - glipizide highly renally cleared. likely unintentional overdose secondary to poor clearance. - D10 infusion - D50 when necessary - Hold home meds Anxiety/Depression - Fluoxetine - Risperidone High Cholesterol - Pravastatin Hypertension - Currently normotensive - Will use when necessary meds when indicated DVT GI prophylaxis - Teds SCDs - Subcutaneous heparin - Pepcid Dispo: remain in ICU while on D10w infusion with serial accuchecks. then can transfer out of ICU. Jason Vuong MD Aug 12, 2017 19:08
[2017-08-12] MEDS: SODIUM CHLOR 0.9% 1000 ML INJ 1,000 ML IV SCH (21:39)
[2017-08-12] MEDS: PRAVASTATIN SOD 80 MG TAB PO SCH (21:40)
[2017-08-12] MEDS: risperiDONE 1 MG TAB PO SCH (21:40)
--- NOTE | 2017-08-12 21:56 | MB ---
cc: CELENA VALENTIN MD DATE OF CONSULTATION 08/12/17 REASON FOR CONSULTATION Elevated BUN and creatinine for evaluation. HISTORY OF PRESENT ILLNESS This is a very pleasant 57-year-old male with past medical history of anxiety, depression, hyperlipidemia, hypertension, diabetes mellitus who was brought to the hospital because of abnormal labs sent from [place]. I was called to see the patient because of very high BUN and creatinine. The patient has a BUN of 63 and a creatinine of 10 on presentation. Previously he had creatinine of 0.9 to 1.1. This was in 2016. The patient denies any previous history of renal disease. He had routine labs done and went to be [place] and he was told that he needed to go to the hospital because his kidney function was very abnormal. The patient has this nausea, vomiting and diarrhea going on for the last five days and he is not able to keep anything down. He did notice for the last two or three days before coming to the hospital that he has decreased urine output. Denies taking any nonsteroidal anti-inflammatory drugs. There was no history of hematuria or history of renal stone. PAST MEDICAL HISTORY 1. Hypertension, 2. Diabetes mellitus, 3. Hyperlipidemia 4. Anxiety/depression. PAST SURGICAL HISTORY None. REVIEW OF SYSTEMS The patient has generalized weakness, feeling tired. Before he came in here he had nausea, vomiting and diarrhea for 5-6 days. There is no history of hematuria or dysuria, but he did notice that he has decreased urine output for two days before he came in here. Currently, he has Albarado catheter and he is passing good amount of urine. There is no history of taking any nonsteroidal anti-inflammatory drugs. SOCIAL HISTORY There is no history of alcoholism. He stopped smoking in 1986. FAMILY HISTORY Negative for any cardiac or renal disease. ALLERGIES LISINOPRIL MEDICATIONS Currently on 1. IV fluid with Sodium bicarbonate at 75 an hour. 2. Famotidine 10 mg b.i.d. 3. Flonase nasal aspirate 4. Mara-Colace 1 tablet b.i.d. 5. Prozac 40 mg once a day, 6. Pravachol 80 mg q.h.s. 7. Risperdal 2 mg q.h.s. 8. Ambien 5 mg p.r.n. 9. Zofran as needed PHYSICAL EXAMINATION GENERAL: The patient is awake, alert. He is not in acute distress. VITAL SIGNS: Last blood pressure is 126/63, temperature is 98.3, oxygen saturation 95% on room air. He does not have any hypotensive episode. In fact, his blood pressure was on the higher side on presentation. HEENT: Pupils are mid constricted. Nonicteric sclerae. Conjunctivae normal. NECK: Supple. JVD is not elevated. LUNGS: The patient has bilateral good air entry. No wheezing. HEART: S1, S2 regular rhythm. ABDOMEN: Distended, soft lax. There is no tenderness. Bowel sounds positive. EXTREMITIES: There is no pedal edema. LABORATORY DATA WBC count is 14.9, hemoglobin 13.0, platelet count of 228, neutrophils 87.9%. Sodium 131. Potassium 4.1, chloride 89, bicarb 27.7, BUN 64, creatinine 9.1, glucose 123. Calcium 7.9, phosphorus 5.0. Magnesium 1.8, AST, ALT normal, total protein is 6.4. Albumin of 3.0. Urinalysis showing protein of 30. IMAGING STUDIES The patient has ultrasound of the kidneys done which shows that he has normal size kidneys, unremarkable ultrasound with bladder distension despite Albarado catheter placement. Chest x-ray was done which shows lung cr clear. ASSESSMENT/PLAN 1. Acute kidney injury 2. Nausea, vomiting and diarrhea with dehydration. 3. Metabolic acidosis 4. History of hypertension 5. Diabetes mellitus The patient has acute kidney injury and the etiology is probably related to his dehydration or there is a possibility of ATN. His kidneys look normal in size and has minimal proteinuria. The BUN and creatinine improving. Agree with continuing the IV fluid, bicarb is improved now so the IV fluid can be changed to normal saline. Encourage oral intake. Thank you for the consultation and I will follow the patient while he is in the hospital. MD NESSA Wilkinson/ /6:24 PM /9:35 PM
[2017-08-12] MEDS: PROCHLORPERAZINE INJ 10 MG/2 ML VIAL IV PUSH PRN (22:48)
[2017-08-13] VITALS (14 sets, daily range): BP systolic 115–138; BP diastolic 67–78; PULSE 85–101; RESP 17–29; TEMP 97–99.2; O2SAT 95–98
[2017-08-13] MEDS: CHLORHEXIDINE GLUCONATE 2 % 1 PACK (2 CLOTHS) TOP SCH (04:00)
[2017-08-13] MEDS: ONDANSETRON HCL 4 MG/2 ML VIAL IV PUSH PRN ×2 (05:06→13:01)
[2017-08-13] MEDS: HEPARIN SODIUM - SQ 10,000 UNITS/ML VIAL SQ SCH ×3 (05:06→21:30)
[2017-08-13] MEDS: FAMOTIDINE 20 MG TAB PO SCH ×2 (08:59→20:15)
[2017-08-13] MEDS: DOCUSATE SODIUM 50 MG/SENNA 8.6 MG TAB PO SCH ×2 (09:00→20:15)
[2017-08-13] MEDS: FLUoxetine HCL 20 MG CAP PO SCH (09:00)
[2017-08-13] MEDS: FLUTICASONE PROPIONATE 50 MCG/ACT 16 GM NASAL SPRAY EACH NARE SCH ×2 (09:00→20:14)
[2017-08-13] MEDS: SODIUM CHLORIDE 0.9% FLUSH 10 ML FLUSH IV FLUSH SCH ×2 (09:01→20:14)
[2017-08-13] MEDS: SODIUM CHLOR 0.9% 1000 ML INJ 1,000 ML IV SCH ×2 (09:01→20:14)
[2017-08-13] MEDS: PROCHLORPERAZINE INJ 10 MG/2 ML VIAL IV PUSH PRN (09:02)
--- NOTE | 2017-08-13 16:17 | HHI.CCPN ---
Subjective Remarks/Hospital Course Hospital Course: 57-year-old male presents from the where he had a lab work and a routine visit done yesterday. He went back today for evaluation nausea and vomiting since Wednesday. He reports 3 episodes of vomiting in the past 24 hours. He was told that he has rhabdomyolysis and was sent here to the emergency department. He was also found to be severely hypoglycemic with a blood sugar at 45. The patient reports history of diabetes and is on metformin and glipizide. He has been taking his medications, but has not been eating due to nausea and vomiting. He states that he has been laying in bed and states this is due to his depression. Patient denies any headache. No fevers or chills. He denies any chest pain or shortness of breath. He denies any abdominal pain. Subjective: 08/12: patient subjectively feels better. awaiting nephrology recommendations. on d10w infusion but blood sugars starting to improve. some nausea, but he states this is better. denies any abdominal pain. no diarrhea. no other associated symptoms. 08/13: stable blood sugars stable off D10w. renal function poor but non- oliguric. nausea from yesterday improving. no other complaints. Objective Vital Signs Date Time Temp Pulse Resp B/P (MAP) Pulse Ox O2 Delivery O2 Flow Rate FiO2 08/13/17 14:00 88 08/13/17 12:00 97.9 28 115/71 (86) 95 08/13/17 08:22 Nasal Cannula 2.00 Intake and Output 08/13/17 08/13/17 08/14/17 08:00 16:00 00:00 Intake Total 980 ml Output Total 1275 ml 1825 ml Balance -1275 ml -845 ml Result Diagram: 08/12/17 0147 08/12/17 1715 Objective Remarks GENERAL: Morbidly obese male SKIN: Warm and dry. HEAD: Normocephalic. EYES: No scleral icterus. No injection or drainage. NECK: trachea midline. No JVD CARDIOVASCULAR: Regular rate and rhythm RESPIRATORY: unlabored. equal chest rise. GASTROINTESTINAL: Abdomen soft, non-tender, nondistended. MUSCULOSKELETAL: No cyanosis, or edema. NEURO EXAM: RASS 0. CAM -. GCS 15. no focal deficits. : roldan with large amount of clear yellow urine. A/P Assessment and Plan Acute kidney injury - IV hydration - Strict I's and O's - Nephrology consult - Ultrasound of kidneys: no hydro. - Monitor electrolytes and creatinine level Diabetes mellitus - Hold all diabetic medications due to severe hypoglycemia - Insulin sliding scale when indicated Hypoglycemia - resolved. - glipizide highly renally cleared. likely unintentional overdose secondary to poor clearance. - d/c D10w - de-escalate serial glucose to q4h - would wait until sugars are persistently > 180 to start SSI. - D50 when necessary - Hold home meds Anxiety/Depression - Fluoxetine - Risperidone High Cholesterol - Pravastatin Hypertension - Currently normotensive - Will use when necessary meds when indicated DVT GI prophylaxis - Teds SCDs - Subcutaneous heparin - Pepcid Dispo: transfer out of ICU. consult hospitalist service for ongoing work-up for acute renal failure. Jason Vuong MD Aug 13, 2017 16:17
--- NOTE | 2017-08-13 16:19 | HHI.NPPN ---
Subjective History of Present Illness 57-year-old male with past medical history of anxiety, depression, hyperlipidemia, hypertension, diabetes mellitus who was brought to the hospital because of abnormal labs sent [place]. I was called to see the patient because of very high BUN and creatinine. The patient has a BUN of 63 and a creatinine of 10 on presentation. Additional Remarks Patient seen, alert, no SOB, feeling better, not in distress. Review of Systems General Constitutional: Fatigue Cardiovascular Cardiac: GIBSON Objective Data Data 08/13/17 08/14/17 19:00 07:00 Intake Total 980 ml Output Total 1825 ml Balance -845 ml IV Total 980 ml Output Urine Total 1825 ml Vital Signs Date Time Temp Pulse Resp B/P (MAP) Pulse Ox O2 Delivery O2 Flow Rate FiO2 08/13/17 14:00 88 08/13/17 12:00 85 08/13/17 12:00 97.9 85 28 115/71 (86) 95 08/13/17 10:00 101 08/13/17 08:22 95 Nasal Cannula 2.00 08/13/17 08:00 86 08/13/17 08:00 98.2 86 24 116/67 (83) 95 08/13/17 06:00 85 08/13/17 04:00 98.1 85 20 138/78 (98) 95 08/13/17 04:00 85 08/13/17 02:00 86 08/13/17 00:00 90 08/13/17 00:00 98.0 90 29 133/78 (96) 96 08/12/17 22:45 97 Nasal Cannula 2.00 08/12/17 22:00 87 08/12/17 20:00 87 08/12/17 20:00 98.7 87 35 127/70 (89) 94 08/12/17 18:00 94 -: 08/12/17 0147 08/12/17 1715 Physical Exam General Appearance: No Acute Distress, Comfortable Eyes Eye Exam: Pupils Equal Throat Throat Exam: Oral Mucosa [place] & Moist Neck Neck Exam: Neck Supple Pulmonary Resp Exam: Breath Sounds Equal, Rhonchi, Decreased Bases, Diminished Breath Sounds Cardiology CV Exam: Regular, Normal Sinus Rhythm Gastrointestinal/Abdomen GI Exam: Soft, Non-Tender, Distended Extremeties Extremities Exam: Trace Edema Neurologic Neuro Exam: Alert, Awake, Oriented Psychiatric Psych Exam: Appropriate Responses Assessment/Plan Assessment Summary: JEFFY/Acute Renal Failure Problem List: (1) Depression ICD Codes: F32.9 - Major depressive disorder, single episode, unspecified Status: Acute (2) Hypoglycemia ICD Codes: E16.2 - Hypoglycemia, unspecified Status: Acute (3) Acute renal failure ICD Codes: N17.9 - Acute kidney failure, unspecified Status: Acute Plan Patient has been non oliguric. Renal U/S noted. New BMP is pending. Creatinine was improving, continue IVF, avoid Nephrotoxins. Follow the urine out put and BMP. Problem Qualifiers (1) Acute renal failure: Qualified Codes: N17.9 - Acute kidney failure, unspecified Fifi Wheeler MD Aug 13, 2017 16:19
[2017-08-13 16:54] LABS: BICARBONATE 29.6 MEQ/L (21.0-32.0); CALCIUM 8.4 MG/DL (8.5-10.1); CREATININE 8.11 MG/DL (0.60-1.30)
[2017-08-13] MEDS: PRAVASTATIN SOD 80 MG TAB PO SCH (20:15)
[2017-08-13] MEDS: risperiDONE 1 MG TAB PO SCH (20:15)
[2017-08-14] VITALS: BP 123/68; PULSE 87; RESP 17; TEMP 97.9; O2SAT 95
[2017-08-14] MEDS: CHLORHEXIDINE GLUCONATE 2 % 1 PACK (2 CLOTHS) TOP SCH (04:00)
[2017-08-14] MEDS: HEPARIN SODIUM - SQ 10,000 UNITS/ML VIAL SQ SCH ×3 (04:49→22:34)
[2017-08-14 08:00] VITALS: BP 136/82; PULSE 75; PULSE 85; RESP 18; TEMP 95.5; O2SAT 95
[2017-08-14] MEDS: SODIUM CHLOR 0.9% 1000 ML INJ 1,000 ML IV SCH ×2 (08:03→18:40)
[2017-08-14] MEDS: SODIUM CHLORIDE 0.9% FLUSH 10 ML FLUSH IV FLUSH SCH ×2 (09:00→21:00)
[2017-08-14] MEDS: FAMOTIDINE 20 MG TAB PO SCH ×2 (09:47→22:34)
[2017-08-14] MEDS: FLUoxetine HCL 20 MG CAP PO SCH (09:47)
[2017-08-14] MEDS: DOCUSATE SODIUM 50 MG/SENNA 8.6 MG TAB PO SCH ×2 (09:48→22:34)
[2017-08-14] MEDS: FLUTICASONE PROPIONATE 50 MCG/ACT 16 GM NASAL SPRAY EACH NARE SCH ×2 (10:02→22:37)
[2017-08-14 12:00] VITALS: BP 127/77; PULSE 92; RESP 18; TEMP 98.7; O2SAT 94
--- NOTE | 2017-08-14 12:05 | HHI.PR ---
Subjective Remarks Patient reports is feeling well today. Urinating okay. Tolerating his diet. Objective Vitals Vital Signs Date Time Temp Pulse Resp B/P (MAP) Pulse Ox O2 Delivery O2 Flow Rate FiO2 08/14/17 08:00 95.5 85 18 136/82 (100) 95 08/14/17 00:00 97.9 87 17 123/68 (86) 95 08/13/17 21:00 97.0 92 17 137/77 (97) 96 08/13/17 20:26 98 Nasal Cannula 2.00 08/13/17 20:00 89 08/13/17 18:00 86 08/13/17 16:00 99.2 87 24 116/68 (84) 95 08/13/17 16:00 90 08/13/17 14:00 88 I/O 08/13/17 08/13/17 08/13/17 08/14/17 08/14/17 08/14/17 07:00 15:00 23:00 07:00 15:00 23:00 Intake Total 980 ml 0 ml 1829 ml Output Total 1525 ml 1825 ml 1000 ml Balance -1525 ml -845 ml -1000 ml 1829 ml Intake Oral 0 ml IV Total 980 ml 1829 ml Output Urine Total 1525 ml 1825 ml 1000 ml Result Diagram: 08/12/17 0147 08/13/17 1511 Objective Remarks GENERAL: This is a well-nourished, well-developed patient, in no apparent distress. CARDIOVASCULAR: Normal rate and regular rhythm without murmurs, gallops, or rubs. RESPIRATORY: Good respiratory efforts. Breath sounds equal and clear to auscultation bilaterally. GASTROINTESTINAL: Abdomen soft, non-tender, non-distended. Normal active bowel sounds MUSCULOSKELETAL: Extremities without cyanosis, or edema. NEURO: Alert & Oriented x4 to person, place, time, situation. Moves all ext x4 PSYCH: Appropriate mood and affect. A/P Assessment and Plan 57-year-old male admitted with acute kidney injury. The patient reports episodes of vomiting and inability to eat or drink prior to admission. Patient was also found to be severely hypoglycemic with a blood sugar of 45. He has been on metformin and glipizide outpatient. Acute kidney injury: Creatinine of 10 on presentation. - Nephrology following. He is nonoliguric. Creatinine is slowly improving. -Continue IV hydration - Strict I's and O's - Ultrasound of kidneys: Unremarkable. Minimal proteinuria. Serology and SPEP per nephrology. - Monitor electrolytes and creatinine level. Creatinine is slowly improving. Diabetes mellitus - Hold all diabetic medications due to severe hypoglycemia -Start sliding scale insulin with Accu-Cheks. Hypoglycemia - resolved. - glipizide highly renally cleared. likely unintentional overdose secondary to poor clearance. - Blood glucose 180 this morning. Start sliding scale insulin with Accu-Cheks. Anxiety/Depression - Fluoxetine - Risperidone High Cholesterol - Pravastatin Hypertension - Currently normotensive - Will use when necessary meds when indicated DVT GI prophylaxis - Teds SCDs - Subcutaneous heparin - Guy Morris MD Aug 14, 2017 12:05
--- NOTE | 2017-08-14 12:35 | HHI.NPPN ---
Subjective History of Present Illness 57-year-old male with past medical history of anxiety, depression, hyperlipidemia, hypertension, diabetes mellitus who was brought to the hospital because of abnormal labs sent from [place]. I was called to see the patient because of very high BUN and creatinine. The patient has a BUN of 63 and a creatinine of 10 on presentation. Additional Remarks Patient seen, alert, no SOB, feeling better, eating well, no vomiting. Review of Systems General Constitutional: Fatigue Cardiovascular Cardiac: GIBSON Objective Data Data 08/14/17 08/15/17 19:00 07:00 Intake Total 1829 ml Balance 1829 ml IV Total 1829 ml Vital Signs Date Time Temp Pulse Resp B/P (MAP) Pulse Ox O2 Delivery O2 Flow Rate FiO2 08/14/17 12:00 98.7 92 18 127/77 (94) 94 08/14/17 08:00 95.5 85 18 136/82 (100) 95 08/14/17 00:00 97.9 87 17 123/68 (86) 95 08/13/17 21:00 97.0 92 17 137/77 (97) 96 08/13/17 20:26 98 Nasal Cannula 2.00 08/13/17 20:00 89 08/13/17 18:00 86 08/13/17 16:00 99.2 87 24 116/68 (84) 95 08/13/17 16:00 90 08/13/17 14:00 88 -: 08/12/17 0147 08/13/17 1511 Physical Exam General Appearance: No Acute Distress, Comfortable Eyes Eye Exam: Pupils Equal Throat Throat Exam: Oral Mucosa [place] & Moist Neck Neck Exam: Neck Supple Pulmonary Resp Exam: Breath Sounds Equal, Rhonchi, Decreased Bases, Diminished Breath Sounds Cardiology CV Exam: Regular, Normal Sinus Rhythm Gastrointestinal/Abdomen GI Exam: Soft, Non-Tender, Distended Extremeties Extremities Exam: Trace Edema Neurologic Neuro Exam: Alert, Awake, Oriented Psychiatric Psych Exam: Appropriate Responses Assessment/Plan Assessment Summary: JEFFY/Acute Renal Failure Problem List: (1) Depression ICD Codes: F32.9 - Major depressive disorder, single episode, unspecified Status: Acute (2) Hypoglycemia ICD Codes: E16.2 - Hypoglycemia, unspecified Status: Acute (3) Acute renal failure ICD Codes: N17.9 - Acute kidney failure, unspecified Status: Acute Plan Patient has been non oliguric. Renal U/S noted. Has minimal proteinuria, still will send serology and SPEP. Creatinine is slowly improving. continue IVF, avoid Nephrotoxins. Follow the urine out put and BMP. Problem Qualifiers (1) Acute renal failure: Qualified Codes: N17.9 - Acute kidney failure, unspecified Fifi Wheeler MD Aug 14, 2017 12:35
[2017-08-14 16:00] VITALS: BP 117/73; PULSE 85; RESP 20; TEMP 98.6; O2SAT 97
[2017-08-14 17:49] LABS: BICARBONATE 32.2 MEQ/L (21.0-32.0); BLOOD UREA NITROGEN 70 MG/DL (7-18); CALCIUM 8.7 MG/DL (8.5-10.1); CHLORIDE 94 MEQ/L (98-107); GLOMERULAR FILTRATION RATE 10 ML/MIN (>89); GLUCOSE,RANDOM 133 MG/DL (74-106); SODIUM (NA) 133 MEQ/L (136-145)
[2017-08-14 20:00] VITALS: BP 130/87; PULSE 85; RESP 18; TEMP 97.2; O2SAT 95
[2017-08-14 20:10] VITALS: PULSE 86
[2017-08-14] MEDS: PRAVASTATIN SOD 80 MG TAB PO SCH (22:34)
[2017-08-14] MEDS: risperiDONE 1 MG TAB PO SCH (22:34)
[2017-08-15] VITALS (10 sets, daily range): BP systolic 126–183; BP diastolic 72–94; PULSE 71–96; RESP 17–18; TEMP 96–97.4; O2SAT 91–96
[2017-08-15 03:22] LABS: BICARBONATE 33.5 MEQ/L (21.0-32.0); CALCIUM 8.6 MG/DL (8.5-10.1); CREATININE 4.63 MG/DL (0.60-1.30)
[2017-08-15 03:25] LABS: COMPLEMENT C3 125 MG/DL (90-180); COMPLEMENT C4 43 MG/DL (10-40)
[2017-08-15] MEDS: CHLORHEXIDINE GLUCONATE 2 % 1 PACK (2 CLOTHS) TOP SCH (04:00)
[2017-08-15] MEDS: SODIUM CHLOR 0.9% 1000 ML INJ 1,000 ML IV SCH ×2 (06:18→18:13)
[2017-08-15] MEDS: HEPARIN SODIUM - SQ 10,000 UNITS/ML VIAL SQ SCH ×3 (06:18→21:03)
[2017-08-15] MEDS: FLUTICASONE PROPIONATE 50 MCG/ACT 16 GM NASAL SPRAY EACH NARE SCH ×2 (07:58→21:18)
[2017-08-15] MEDS: FAMOTIDINE 20 MG TAB PO SCH ×2 (07:59→21:03)
[2017-08-15] MEDS: FLUoxetine HCL 20 MG CAP PO SCH (07:59)
[2017-08-15] MEDS: DOCUSATE SODIUM 50 MG/SENNA 8.6 MG TAB PO SCH ×2 (08:00→21:03)
[2017-08-15] MEDS: SODIUM CHLORIDE 0.9% FLUSH 10 ML FLUSH IV FLUSH SCH ×2 (08:02→21:00)
--- NOTE | 2017-08-15 10:46 | HHI.NPPN ---
Subjective History of Present Illness 57-year-old male with past medical history of anxiety, depression, hyperlipidemia, hypertension, diabetes mellitus who was brought to the hospital because of abnormal labs sent from [place]. I was called to see the patient because of very high BUN and creatinine. The patient has a BUN of 63 and a creatinine of 10 on presentation. Additional Remarks Patient is alert, no SOB, feeling better, eating well, no vomiting, clinically same. Review of Systems General Constitutional: Fatigue Cardiovascular Cardiac: GIBSON Objective Data Data Vital Signs Date Time Temp Pulse Resp B/P (MAP) Pulse Ox O2 Delivery O2 Flow Rate FiO2 08/15/17 08:00 96.2 92 17 126/72 (90) 93 08/15/17 06:00 162/84 (110) 08/15/17 04:54 96.0 90 18 173/94 (120) 92 08/15/17 00:48 96.8 76 18 173/84 (113) 92 08/14/17 20:10 86 08/14/17 20:00 97.2 85 18 130/87 (101) 95 08/14/17 16:00 98.6 85 20 117/73 (88) 97 08/14/17 12:00 98.7 92 18 127/77 (94) 94 -: 08/12/17 0147 08/15/17 0209 Physical Exam General Appearance: No Acute Distress, Comfortable Eyes Eye Exam: Pupils Equal Throat Throat Exam: Oral Mucosa [place] & Moist Neck Neck Exam: Neck Supple Pulmonary Resp Exam: Breath Sounds Equal, Rhonchi, Decreased Bases, Diminished Breath Sounds Cardiology CV Exam: Regular, Normal Sinus Rhythm Gastrointestinal/Abdomen GI Exam: Soft, Non-Tender, Distended Extremeties Extremities Exam: Trace Edema Neurologic Neuro Exam: Alert, Awake, Oriented Psychiatric Psych Exam: Appropriate Responses Assessment/Plan Assessment Summary: JEFFY/Acute Renal Failure Problem List: (1) Depression ICD Codes: F32.9 - Major depressive disorder, single episode, unspecified Status: Acute (2) Hypoglycemia ICD Codes: E16.2 - Hypoglycemia, unspecified Status: Acute (3) Acute renal failure ICD Codes: N17.9 - Acute kidney failure, unspecified Status: Acute Plan Patient has been non oliguric. Renal U/S noted. Has minimal proteinuria,serology and SPEP pending. Creatinine is slowly improving. continue IVF, avoid Nephrotoxins. Follow the urine out put and BMP. Complements not low, check ANCA also. Problem Qualifiers (1) Acute renal failure: Qualified Codes: N17.9 - Acute kidney failure, unspecified Fifi Wheeler MD Aug 15, 2017 10:46
[2017-08-15 13:41] LABS: HEMOGLOBIN A1C 6.6 % (4.3-6.0)
--- NOTE | 2017-08-15 13:44 | HHI.PR ---
Subjective Remarks Patient reports is feeling well. Eating well. Renal functions improving. Objective Vitals Vital Signs Date Time Temp Pulse Resp B/P (MAP) Pulse Ox O2 Delivery O2 Flow Rate FiO2 08/15/17 12:00 96.3 79 17 130/81 (97) 92 08/15/17 08:40 90 08/15/17 08:40 90 08/15/17 08:00 96.2 92 17 126/72 (90) 93 08/15/17 06:00 162/84 (110) 08/15/17 04:54 96.0 90 18 173/94 (120) 92 08/15/17 00:48 96.8 76 18 173/84 (113) 92 08/14/17 20:10 86 08/14/17 20:00 97.2 85 18 130/87 (101) 95 08/14/17 16:00 98.6 85 20 117/73 (88) 97 I/O 08/14/17 08/14/17 08/14/17 08/15/17 08/15/17 08/15/17 07:00 15:00 23:00 07:00 15:00 23:00 Intake Total 0 ml 1829 ml 1400 ml Output Total 1000 ml 1000 ml 1350 ml Balance -1000 ml 1829 ml 400 ml -1350 ml Intake Oral 0 ml 1400 ml IV Total 1829 ml Output Urine Total 1000 ml 1000 ml 1350 ml # Voids 3 # Bowel Movements 0 Result Diagram: 08/12/17 0147 08/15/17 0209 Objective Remarks GENERAL: This is a well-nourished, well-developed patient, in no apparent distress. CARDIOVASCULAR: Normal rate and regular rhythm without murmurs, gallops, or rubs. RESPIRATORY: Good respiratory efforts. Breath sounds equal and clear to auscultation bilaterally. GASTROINTESTINAL: Abdomen soft, non-tender, non-distended. Normal active bowel sounds MUSCULOSKELETAL: Extremities without cyanosis, or edema. NEURO: Alert & Oriented x4 to person, place, time, situation. Moves all ext x4 PSYCH: Appropriate mood and affect. A/P Assessment and Plan In summary, this is a 57-year-old male admitted with acute kidney injury. The patient reports episodes of vomiting and inability to eat or drink prior to admission. Patient was also found to be severely hypoglycemic with a blood sugar of 45. He has been on metformin and glipizide outpatient. The patient's renal function is improving. Nephrology is following. Once renal functions acceptable by nephrology, he can be discharged. Acute kidney injury: Creatinine of 10 on presentation. - Nephrology following. He is nonoliguric. Creatinine is slowly improving. -Continue IV hydration - Strict I's and O's - Ultrasound of kidneys: Unremarkable. Minimal proteinuria. Serology and SPEP per nephrology. - Monitor electrolytes and creatinine level. Creatinine is slowly improving. Diabetes mellitus - Hold all diabetic medications due to severe hypoglycemia -Sliding scale insulin with Accu-Cheks. Hypoglycemia - resolved. - glipizide highly renally cleared. likely unintentional overdose secondary to poor clearance. - Blood glucose 180 this morning. Start sliding scale insulin with Accu-Cheks. Anxiety/Depression - Fluoxetine - Risperidone High Cholesterol - Pravastatin Hypertension - Currently normotensive - Will use when necessary meds when indicated DVT GI prophylaxis - Teds SCDs - Subcutaneous heparin - Guy Morris MD Aug 15, 2017 13:44
[2017-08-15] MEDS: PRAVASTATIN SOD 80 MG TAB PO SCH (21:02)
[2017-08-15] MEDS: risperiDONE 1 MG TAB PO SCH (21:03)
[2017-08-16] VITALS (7 sets, daily range): BP systolic 149–162; BP diastolic 81–86; PULSE 76–91; RESP 18–20; TEMP 96.7–97.5; O2SAT 90–93
[2017-08-16] MEDS: CHLORHEXIDINE GLUCONATE 2 % 1 PACK (2 CLOTHS) TOP SCH (04:00)
[2017-08-16] MEDS: HEPARIN SODIUM - SQ 10,000 UNITS/ML VIAL SQ SCH ×3 (07:27→20:25)
[2017-08-16] MEDS: SODIUM CHLOR 0.9% 1000 ML INJ 1,000 ML IV SCH ×2 (07:28→18:07)
[2017-08-16] MEDS: SODIUM CHLORIDE 0.9% FLUSH 10 ML FLUSH IV FLUSH SCH ×2 (09:00→20:26)
[2017-08-16] MEDS: FLUTICASONE PROPIONATE 50 MCG/ACT 16 GM NASAL SPRAY EACH NARE SCH ×2 (09:01→20:26)
[2017-08-16] MEDS: DOCUSATE SODIUM 50 MG/SENNA 8.6 MG TAB PO SCH ×2 (09:02→20:25)
[2017-08-16] MEDS: FLUoxetine HCL 20 MG CAP PO SCH (09:02)
[2017-08-16] MEDS: FAMOTIDINE 20 MG TAB PO SCH ×2 (09:02→20:25)
[2017-08-16 10:41] LABS: ALB/GLOB RATIO (SPE) 1.14 (1.39-2.23)
--- NOTE | 2017-08-16 11:58 | HHI.PR ---
Subjective Remarks 57-year-old male presents from the where he had a lab work and a routine visit done yesterday. He went back today for evaluation nausea and vomiting since Wednesday. He reports 3 episodes of vomiting in the past 24 hours. He was told that he has rhabdomyolysis and was sent here to the emergency department. He was also found to be severely hypoglycemic with a blood sugar at 45. The patient reports history of diabetes and is on metformin and glipizide. He has been taking his medications, but has not been eating due to nausea and vomiting. He states that he has been laying in bed and states this is due to his depression. Patient denies any headache. No fevers or chills. He denies any chest pain or shortness of breath. He denies any abdominal pain. 08-16 Follow-up acute renal failure Creatinine continues to improve Discussed with patient and RN A.m. labs Hopefully home in next 24-48 hours Accu-Cheks before meals and at bedtime Objective Vitals Vital Signs Date Time Temp Pulse Resp B/P (MAP) Pulse Ox O2 Delivery O2 Flow Rate FiO2 08/16/17 08:40 91 08/16/17 08:00 96.7 81 20 162/81 (108) 93 08/16/17 04:35 96.7 77 18 149/83 (105) 93 08/16/17 00:00 96.7 77 18 149/83 (105) 93 08/15/17 20:52 76 160/72 (101) 08/15/17 20:06 96 08/15/17 20:00 97.4 80 18 183/93 (123) 96 08/15/17 16:00 96.0 71 17 132/76 (94) 91 08/15/17 12:00 96.3 79 17 130/81 (97) 92 I/O 08/15/17 08/15/17 08/15/17 08/16/17 08/16/17 08/16/17 07:00 15:00 23:00 07:00 15:00 23:00 Intake Total 720 ml 806 ml Output Total 1350 ml 1500 ml 1800 ml Balance -1350 ml -780 ml -994 ml Intake Oral 720 ml IV Total 806 ml Output Urine Total 1350 ml 1500 ml 1800 ml # Bowel Movements 0 Result Diagram: 08/12/17 0147 08/15/17 0209 Other Results Laboratory Tests Test 08/13/17 15:11 08/14/17 16:47 08/15/17 02:09 08/16/17 00:00 Blood Urea Nitrogen 64 MG/DL 70 MG/DL 63 MG/DL Creatinine 8.11 MG/DL 5.90 MG/DL 4.63 MG/DL Random Glucose 187 MG/DL 133 MG/DL 138 MG/DL Calcium Level 8.4 MG/DL 8.7 MG/DL 8.6 MG/DL Sodium Level 133 MEQ/L 133 MEQ/L 139 MEQ/L Potassium Level 4.0 MEQ/L 3.9 MEQ/L 4.4 MEQ/L Chloride Level 91 MEQ/L 94 MEQ/L 100 MEQ/L Carbon Dioxide Level 29.6 MEQ/L 32.2 MEQ/L 33.5 MEQ/L Anion Gap 12 MEQ/L 7 MEQ/L 6 MEQ/L Estimat Glomerular Filtration Rate 7 ML/MIN 10 ML/MIN 13 ML/MIN Hemoglobin A1c 6.6 % Total Protein 6.3 GM/DL Albumin 3.35 GM/DL Albumin/Globulin Ratio 1.14 Tajwz-8-Lauldvmqc 0.29 GM/DL Nubgc-7-Uddaiahwj 1.08 GM/DL Beta Globulins 0.88 GM/DL Gamma Globulins 0.69 GM/DL Complement C3 125 MG/DL Complement C4 43 MG/DL Test 08/16/17 08:25 Phosphorus Level 2.5 MG/DL Imaging Last Impressions Renal Ultrasound 08/12/17 0000 Signed Impressions: Service Date/Time: August 13:22 - CONCLUSION: 1. Unremarkable ultrasound examination of the kidneys. 2. Bladder distention despite Albarado catheter placement as above Lj Benavides MD Chest X-Ray 08/11/17 1722 Signed Impressions: Service Date/Time: Friday, August 11, 2017 17:35 - CONCLUSION: No acute disease. Javon Garcia MD Objective Remarks GENERAL: Awake alert oriented 3 talkative and cooperative SKIN: Warm and dry. HEAD: Atraumatic. Normocephalic. EYES: Pupils equal and round. No scleral icterus. No injection or drainage. Extraocular muscles intact ENT: No nasal bleeding or discharge. Mucous membranes pink and moist. Tongue is midline NECK: Trachea midline. No JVD. Neck is supple CARDIOVASCULAR: Regular rate and rhythm. S1 and S2 no S3 or S4 RESPIRATORY: No accessory muscle use. Clear to auscultation. Breath sounds equal bilaterally. GASTROINTESTINAL: Abdomen soft, non-tender, nondistended. Hepatic and splenic margins not palpable. MUSCULOSKELETAL: Extremities without clubbing, cyanosis, or edema. No obvious deformities. NEUROLOGICAL: Awake and alert. No obvious cranial nerve deficits. Motor grossly within normal limits. Five out of 5 muscle strength in the arms and legs. Normal speech. PSYCHIATRIC: Appropriate mood and affect; insight and judgment normal. Medications and IVs Current Medications Ondansetron HCl (Zofran Inj) 4 mg ONCE ONCE IVP Last administered on 17:30; Start 08/11/17 at 17:30; Stop 08/11/17 at 17:31; Status DC Sodium Chloride (NS Flush) 2 ml UNSCH PRN IVF FLUSH AFTER USING IV ACCESS; Start 08/11/17 at 17:30; Stop 08/11/17 at 19:21; Status DC Sodium Chloride 1,000 ml @ 1,000 mls/hr Q1H ONCE IV Last administered on 17:22; Start 08/11/17 at 17:22; Stop 08/11/17 at 18:21; Status DC Dextrose (D50w (Vial) Inj) 50 ml STK-MED ONCE .ROUTE ; Start 08/11/17 at 18:16; Stop 08/11/17 at 18:17; Status DC Dextrose (D50w (Syr) Inj) 50 ml ONCE ONCE IV PUSH Last administered on 18:22; Start 08/11/17 at 18:30; Stop 08/11/17 at 18:31; Status DC Dextrose 1,000 ml @ 150 mls/hr Q6H40M IV Last administered on 08/11/17 18:27 ; Start 08/11/17 at 18:30; Stop 08/11/17 at 19:21; Status DC Fluoxetine HCl (PROzac) 40 mg DAILY PO Last administered on 08/16/17 09:02; Start 08/12/17 at 09:00 Fluticasone Propionate (Flonase Yared Spr) 1 spray BID EACH NARE Last administered on 08/16/17 09:01; Start 08/11/17 at 21:00 Pravastatin Sodium (Pravachol) 80 mg HS PO Last administered on 08/15/17 21:02 ; Start 08/11/17 at 21:00 Famotidine (Pepcid) 10 mg BID PO Last administered on 08/16/17 09:02; Start 08/11/17 at 21:00 Risperidone (risperDAL) 2 mg HS PO Last administered on 08/15/17 21:03; Start 08/11/17 at 21:00 Sodium Chloride 1,000 ml @ 84 mls/hr [id number] IV ; Start 08/11/17 at 19:01; Stop 08/11/17 at 19:10; Status DC Sodium Chloride (NS Flush) 2 ml UNSCH PRN IV FLUSH FLUSH AFTER USING IV ACCESS ; Start 08/11/17 at 19:15 Sodium Chloride (NS Flush) 2 ml BID IV FLUSH Last administered on 08/13/17 20: 14; Start 08/11/17 at 21:00 Acetaminophen (Tylenol) 650 mg Q6H PRN PO PAIN 1-10 AND/OR FEVER >101F; Start 08/11/17 at 19:15 Ondansetron HCl (Zofran Inj) 4 mg Q6H PRN IV PUSH NAUSEA OR VOMITING Last administered on 08/13/17 13:01; Start 08/11/17 at 19:15 Zolpidem Tartrate (Ambien) 5 mg HS PRN PO INSOMNIA; Start 08/11/17 at 19:15; Stop 08/13/17 at 16:19; Status DC Heparin Sodium (Porcine) (Heparin Inj) 5,000 units Q8H SQ Last administered on 08/16/17 07:27; Start 08/11/17 at 22:00 Miscellaneous Information 1 [id number] XX Last administered on 08/11/17 21:39; Start 08/11/17 at 19:15 Chlorhexidine Gluconate (Chlorhexidine 2% Cloth) 3 pack Taper DAILY@04 TOP Last administered on 08/11/17 21:37; Start 08/12/17 at 04:00; Stop 08/08/18 at 03:59 Chlorhexidine Gluconate (Chlorhexidine 2% Cloth) 3 pack UNSCH PRN TOP HYGIENIC CARE; Start 08/11/17 at 19:15 Senna/Docusate Sodium (Mara-Colace) 1 tab BID PO Last administered on 09:02; Start 08/11/17 at 21:00 Magnesium Hydroxide (Milk Of Magnesia Liq) 30 ml Q12H PRN PO Mild constipation Last administered on 08/16/17 09:00; Start 08/11/17 at 19:15 Sennosides (Senokot) 17.2 mg Q12H PRN PO Moderate constipation; Start 08/11/17 at 19:15 Bisacodyl (Dulcolax Supp) 10 mg DAILY PRN RECTAL SEVERE CONSITIPATION; Start 08/11/17 at 19:15 Lactulose (Lactulose Liq) 30 ml DAILY PRN PO SEVERE CONSITIPATION; Start at 19:15 Sodium Bicarbonate 150 meq/Dextrose 1,150 ml @ 75 mls/hr [id number] IV Last administered on 08/12/17 13:58; Start 08/11/17 at 20:00; Stop 08/12/17 at 18:24 ; Status DC Miscellaneous (Pill Splitter) 1 ea UNSCH PRN OTHER SEE LABEL COMMENTS; Start 08/11/17 at 19:45 Dextrose 1,000 ml @ 150 mls/hr Q6H40M IV Last administered on 08/12/17 06:16 ; Start 08/11/17 at 21:00; Stop 08/12/17 at 14:42; Status DC Dextrose (D50w (Vial) Inj) 50 ml UNSCH PRN IV PUSH HYPOGLYCEMIA - SEE COMMENTS ; Start 08/12/17 at 01:45; Stop 08/12/17 at 01:51; Status DC Dextrose (D50w (Syr) Inj) 100 ml STK-MED ONCE .ROUTE ; Start 08/12/17 at 01:39; Stop 08/12/17 at 01:40; Status DC Dextrose (D50w (Syr) Inj) 50 ml UNSCH PRN IV BLOOD SUGAR < 70 Last administered on 08/12/17 08:20; Start 08/12/17 at 02:00 Dextrose 500 ml @ 10 mls/hr Q24H IV Last administered on 08/12/17 23:57; Start 08/12/17 at 14:45; Stop 08/13/17 at 16:19; Status DC Sodium Chloride 1,000 ml @ 84 mls/hr [id number] IV Last administered on 07:28; Start 08/12/17 at 19:00 Prochlorperazine Edisylate (Compazine Inj) 5 mg Q6H PRN IV PUSH nausea Last administered on 08/13/17 09:02; Start 08/12/17 at 22:30 A/P Assessment and Plan In summary, this is a 57-year-old male admitted with acute kidney injury. The patient reports episodes of vomiting and inability to eat or drink prior to admission. Patient was also found to be severely hypoglycemic with a blood sugar of 45. He has been on metformin and glipizide outpatient. The patient's renal function is improving. Nephrology is following. Once renal functions acceptable by nephrology, he can be discharged. Acute kidney injury: Creatinine of 10 on presentation. - Nephrology following. He is nonoliguric. Creatinine is slowly improving. -Continue IV hydration - Strict I's and O's - Ultrasound of kidneys: Unremarkable. Minimal proteinuria. Serology and SPEP per nephrology. - Monitor electrolytes and creatinine level. Creatinine is slowly improving. Continues to improve but slowly Diabetes mellitus - Hold all diabetic medications due to severe hypoglycemia--sliding scale coverage before meals and at bedtime with low-dose sliding scale Hypoglycemia - resolved. - glipizide highly renally cleared. likely unintentional overdose secondary to poor clearance. - Blood glucose 180 this morning. Start sliding scale insulin with Accu-Cheks. Anxiety/Depression - Fluoxetine - Risperidone High Cholesterol - Pravastatin Hypertension - Currently normotensive - Will use when necessary meds when indicated DVT GI prophylaxis - Teds SCDs - Subcutaneous heparin - Pepcid Discharge Planning Pending creatinine improvement and clearance by renal A.m. labs Gerardo Jose DO Aug 16, 2017 11:58
[2017-08-16] MEDS ORDERED: GLUCAGON 1 MG/ML VIAL OTHER PRN (12:00)
[2017-08-16] MEDS ORDERED: DEXTROSE 50% IN WATER 50 ML VIAL(D50) IV PUSH PRN (12:00)
[2017-08-16] MEDS: INSULIN ASPART SUPPLEMENTAL SCALE SQ SCH ×3 (12:23→20:26)
[2017-08-16 13:33] LABS: ALBUMIN 3.1 GM/DL (3.4-5.0); ALKALINE PHOSPHATASE 53 U/L (45-117); ALT (GPT) 31 U/L (12-78); AST (GOT) 20 U/L (15-37); BICARBONATE 31.1 MEQ/L (21.0-32.0); BLOOD UREA NITROGEN 41 MG/DL (7-18); CALCIUM 9.2 MG/DL (8.5-10.1); CHLORIDE 100 MEQ/L (98-107); CREATININE 1.98 MG/DL (0.60-1.30); GLOMERULAR FILTRATION RATE 35 ML/MIN (>89); GLUCOSE,RANDOM 156 MG/DL (74-106); SODIUM (NA) 139 MEQ/L (136-145); TOTAL BILIRUBIN ADULT 0.4 MG/DL (0.2-1.0); TOTAL PROTEIN 7.3 GM/DL (6.4-8.2)
--- NOTE | 2017-08-16 18:19 | HHI.NPPN ---
Subjective History of Present Illness 57-year-old male with past medical history of anxiety, depression, hyperlipidemia, hypertension, diabetes mellitus who was brought to the hospital because of abnormal labs sent from [place]. I was called to see the patient because of very high BUN and creatinine. The patient has a BUN of 63 and a creatinine of 10 on presentation. Additional Remarks Patient is alert, no SOB, feeling better, started eating well, no nausea, no abd. pain. Review of Systems General Constitutional: Fatigue Cardiovascular Cardiac: GIBSON Objective Data Data 08/16/17 08/17/17 19:00 07:00 Intake Total 1600 ml Output Total 1200 ml Balance 400 ml Intake Oral 1600 ml Output Urine Total 1200 ml # Bowel Movements 1 Vital Signs Date Time Temp Pulse Resp B/P (MAP) Pulse Ox O2 Delivery O2 Flow Rate FiO2 08/16/17 16:00 97.4 90 18 158/84 (108) 93 08/16/17 12:00 97.0 76 20 153/86 (108) 90 08/16/17 08:40 91 08/16/17 08:00 96.7 81 20 162/81 (108) 93 08/16/17 04:35 96.7 77 18 149/83 (105) 93 08/16/17 00:00 96.7 77 18 149/83 (105) 93 08/15/17 20:52 76 160/72 (101) 08/15/17 20:06 96 08/15/17 20:00 97.4 80 18 183/93 (123) 96 -: 08/12/17 0147 08/16/17 1250 Physical Exam General Appearance: No Acute Distress, Comfortable Eyes Eye Exam: Pupils Equal Throat Throat Exam: Oral Mucosa [place] & Moist Neck Neck Exam: Neck Supple Pulmonary Resp Exam: Breath Sounds Equal, Rhonchi, Decreased Bases, Diminished Breath Sounds Cardiology CV Exam: Regular, Normal Sinus Rhythm Gastrointestinal/Abdomen GI Exam: Soft, Non-Tender, Distended Extremeties Extremities Exam: Trace Edema Neurologic Neuro Exam: Alert, Awake, Oriented Psychiatric Psych Exam: Appropriate Responses Assessment/Plan Assessment Summary: JEFFY/Acute Renal Failure Problem List: (1) Depression ICD Codes: F32.9 - Major depressive disorder, single episode, unspecified Status: Acute (2) Hypoglycemia ICD Codes: E16.2 - Hypoglycemia, unspecified Status: Acute (3) Acute renal failure ICD Codes: N17.9 - Acute kidney failure, unspecified Status: Acute Plan Patient has been non oliguric. Renal U/S noted. Has minimal proteinuria, Creatinine is slowly improving. continue IVF, avoid Nephrotoxins. Follow the urine out put and BMP. Complements not low, SPEP and ENDER negative, ANCA is pending. Problem Qualifiers (1) Acute renal failure: Qualified Codes: N17.9 - Acute kidney failure, unspecified Fifi Wheeler MD Aug 16, 2017 18:19
[2017-08-16] MEDS: risperiDONE 1 MG TAB PO SCH (20:25)
[2017-08-16] MEDS: PRAVASTATIN SOD 80 MG TAB PO SCH (20:25)
[2017-08-17] VITALS: BP 163/80; PULSE 79; RESP 20; TEMP 96.6; O2SAT 93
[2017-08-17] MEDS: CHLORHEXIDINE GLUCONATE 2 % 1 PACK (2 CLOTHS) TOP SCH (04:00)
[2017-08-17] MEDS: HEPARIN SODIUM - SQ 10,000 UNITS/ML VIAL SQ SCH ×2 (05:10→12:43)
[2017-08-17] MEDS: SODIUM CHLOR 0.9% 1000 ML INJ 1,000 ML IV SCH (05:11)
[2017-08-17 05:37] VITALS: BP 161/79; PULSE 76; RESP 18; TEMP 96.5; O2SAT 95
[2017-08-17 08:00] VITALS: BP 193/88; PULSE 76; RESP 17; TEMP 98.8; O2SAT 93
[2017-08-17] MEDS: INSULIN ASPART SUPPLEMENTAL SCALE SQ SCH ×2 (08:00→12:43)
[2017-08-17 09:00] LABS: AUTOMATED NEUTROPHIL # 8.6 TH/MM3 (1.8-7.7); BASOPHIL % 0.3 % (0.0-2.0); EOSINOPHIL # 0.5 TH/MM3 (0-0.4); EOSINOPHIL % 4.2 % (0.0-4.0); HEMATOCRIT 36.2 % (39.0-51.0); HEMOGLOBIN 12.1 GM/DL (13.0-17.0); LYMPH % 14.2 % (9.0-44.0); LYMPHOCYTE # 1.7 TH/MM3 (1.0-4.8); MEAN CELL VOLUME 85.2 FL (80.0-100.0); MEAN CORPUSCULAR HEMOGLOBIN 28.4 PG (27.0-34.0); MEAN CORPUSCULAR HGB CONC 33.3 % (32.0-36.0); MONO % 8.7 % (0.0-8.0); NEUT % 72.6 % (16.0-70.0); PLATELET COUNT 276 TH/MM3 (150-450); RED BLOOD COUNT 4.25 MIL/MM3 (4.50-5.90); RED CELL DISTRIBUTION WIDTH 12.8 % (11.6-17.2); WHITE BLOOD COUNT 11.9 TH/MM3 (4.0-11.0)
[2017-08-17] MEDS: SODIUM CHLORIDE 0.9% FLUSH 10 ML FLUSH IV FLUSH SCH (09:00)
[2017-08-17] MEDS: FLUTICASONE PROPIONATE 50 MCG/ACT 16 GM NASAL SPRAY EACH NARE SCH (09:21)
[2017-08-17] MEDS: FAMOTIDINE 20 MG TAB PO SCH (09:22)
[2017-08-17] MEDS: FLUoxetine HCL 20 MG CAP PO SCH (09:22)
[2017-08-17] MEDS: DOCUSATE SODIUM 50 MG/SENNA 8.6 MG TAB PO SCH (09:22)
[2017-08-17 09:26] LABS: ALBUMIN 2.7 GM/DL (3.4-5.0); AST (GOT) 13 U/L (15-37); BICARBONATE 29.6 MEQ/L (21.0-32.0); BLOOD UREA NITROGEN 32 MG/DL (7-18); CALCIUM 8.9 MG/DL (8.5-10.1); CHLORIDE 103 MEQ/L (98-107); GLOMERULAR FILTRATION RATE 52 ML/MIN (>89); GLUCOSE,RANDOM 140 MG/DL (74-106); MAGNESIUM 1.8 MG/DL (1.5-2.5); SODIUM (NA) 141 MEQ/L (136-145)
[2017-08-17 09:38] LABS: ALKALINE PHOSPHATASE 44 U/L (45-117); ALT (GPT) 24 U/L (12-78); FREE T4 1.26 NG/DL (0.76-1.46); PHOSPHORUS 2.6 MG/DL (2.5-4.9); TOTAL BILIRUBIN ADULT 0.5 MG/DL (0.2-1.0); TOTAL PROTEIN 6.4 GM/DL (6.4-8.2)
[2017-08-17 12:00] VITALS: BP 160/86; PULSE 73; RESP 19; TEMP 97; O2SAT 93
--- NOTE | 2017-08-17 12:34 | HHI.PR ---
Subjective Remarks 57-year-old male presents from the where he had a lab work and a routine visit done yesterday. He went back today for evaluation nausea and vomiting since Wednesday. He reports 3 episodes of vomiting in the past 24 hours. He was told that he has rhabdomyolysis and was sent here to the emergency department. He was also found to be severely hypoglycemic with a blood sugar at 45. The patient reports history of diabetes and is on metformin and glipizide. He has been taking his medications, but has not been eating due to nausea and vomiting. He states that he has been laying in bed and states this is due to his depression. Patient denies any headache. No fevers or chills. He denies any chest pain or shortness of breath. He denies any abdominal pain. 11 Follow-up acute renal failure Creatinine continues to improve Discussed with patient and RN A.m. labs Hopefully home in next 24-48 hours Accu-Cheks before meals and at bedtime 11 CR DOWN TO 1.40 DW RENAL CAN DC TO HOME TODAY AVOID NEPHROTOXINS [facility]LLOW UP [facility] Objective Vitals Vital Signs Date Time Temp Pulse Resp B/P (MAP) Pulse Ox O2 Delivery O2 Flow Rate FiO2 08/17/17 12:00 97.0 73 19 160/86 (110) 93 08/17/17 08:00 98.8 76 17 193/88 (123) 93 08/17/17 05:37 96.5 76 18 161/79 (106) 95 08/17/17 00:00 96.6 79 20 163/80 (107) 93 08/16/17 20:00 97.5 79 18 162/83 (109) 93 08/16/17 16:00 97.4 90 18 158/84 (108) 93 I/O 08/16/17 08/16/17 08/16/17 08/17/17 08/17/17 08/17/17 07:00 15:00 23:00 07:00 15:00 23:00 Intake Total 806 ml 1600 ml 1480 ml Output Total 1800 ml 1700 ml 1650 ml Balance -994 ml -100 ml -170 ml Intake Oral 1600 ml 480 ml IV Total 806 ml 1000 ml Output Urine Total 1800 ml 1700 ml 1650 ml # Bowel Movements 1 0 Result Diagram: 08/17/17 0759 08/17/17 0759 Other Results Laboratory Tests Test 08/14/17 16:47 08/15/17 02:09 08/16/17 00:00 08/16/17 08:25 Blood Urea Nitrogen 70 MG/DL 63 MG/DL Creatinine 5.90 MG/DL 4.63 MG/DL Random Glucose 133 MG/DL 138 MG/DL Calcium Level 8.7 MG/DL 8.6 MG/DL Sodium Level 133 MEQ/L 139 MEQ/L Potassium Level 3.9 MEQ/L 4.4 MEQ/L Chloride Level 94 MEQ/L 100 MEQ/L Carbon Dioxide Level 32.2 MEQ/L 33.5 MEQ/L Anion Gap 7 MEQ/L 6 MEQ/L Estimat Glomerular Filtration Rate 10 ML/MIN 13 ML/MIN Hemoglobin A1c 6.6 % Total Protein 6.3 GM/DL Albumin 3.35 GM/DL Albumin/Globulin Ratio 1.14 Rfobd-8-Kxubunivq 0.29 GM/DL Tiuhz-8-Jxcaqsxkc 1.08 GM/DL Beta Globulins 0.88 GM/DL Gamma Globulins 0.69 GM/DL Electrophoresis Pathologist Comment Anti-Nuclear Antibody Screen NEG Complement C3 125 MG/DL Complement C4 43 MG/DL Phosphorus Level 2.5 MG/DL Test 08/16/17 12:50 08/17/17 07:59 Blood Urea Nitrogen 41 MG/DL 32 MG/DL Creatinine 1.98 MG/DL 1.40 MG/DL Random Glucose 156 MG/DL 140 MG/DL Total Protein 7.3 GM/DL 6.4 GM/DL Albumin 3.1 GM/DL 2.7 GM/DL Calcium Level 9.2 MG/DL 8.9 MG/DL Alkaline Phosphatase 53 U/L 44 U/L Aspartate Amino Transf (AST/SGOT) 20 U/L 13 U/L Alanine Aminotransferase (ALT/SGPT) 31 U/L 24 U/L Total Bilirubin 0.4 MG/DL 0.5 MG/DL Sodium Level 139 MEQ/L 141 MEQ/L Potassium Level 3.7 MEQ/L 3.6 MEQ/L Chloride Level 100 MEQ/L 103 MEQ/L Carbon Dioxide Level 31.1 MEQ/L 29.6 MEQ/L Anion Gap 8 MEQ/L 8 MEQ/L Estimat Glomerular Filtration Rate 35 ML/MIN 52 ML/MIN White Blood Count 11.9 TH/MM3 Red Blood Count 4.25 MIL/MM3 Hemoglobin 12.1 GM/DL Hematocrit 36.2 % Mean Corpuscular Volume 85.2 FL Mean Corpuscular Hemoglobin 28.4 PG Mean Corpuscular Hemoglobin Concent 33.3 % Red Cell Distribution Width 12.8 % Platelet Count 276 TH/MM3 Mean Platelet Volume 8.0 FL Neutrophils (%) (Auto) 72.6 % Lymphocytes (%) (Auto) 14.2 % Monocytes (%) (Auto) 8.7 % Eosinophils (%) (Auto) 4.2 % Basophils (%) (Auto) 0.3 % Neutrophils # (Auto) 8.6 TH/MM3 Lymphocytes # (Auto) 1.7 TH/MM3 Monocytes # (Auto) 1.0 TH/MM3 Eosinophils # (Auto) 0.5 TH/MM3 Basophils # (Auto) 0.0 TH/MM3 CBC Comment DIFF FINAL Differential Comment Phosphorus Level 2.6 MG/DL Magnesium Level 1.8 MG/DL Free Thyroxine 1.26 NG/DL Thyroid Stimulating Hormone 3rd Gen 2.760 uIU/ML Imaging Last Impressions Renal Ultrasound 08/12/17 0000 Signed Impressions: Service Date/Time: August 13:22 - CONCLUSION: 1. Unremarkable ultrasound examination of the kidneys. 2. Bladder distention despite Albarado catheter placement as above Lj Benavides MD Chest X-Ray 08/11/17 1722 Signed Impressions: Service Date/Time: Friday, August 11, 2017 17:35 - CONCLUSION: No acute disease. Javon Garcia MD Objective Remarks GENERAL: Awake alert oriented 3 talkative and cooperative SKIN: Warm and dry. HEAD: Atraumatic. Normocephalic. EYES: Pupils equal and round. No scleral icterus. No injection or drainage. Extraocular muscles intact ENT: No nasal bleeding or discharge. Mucous membranes pink and moist. Tongue is midline NECK: Trachea midline. No JVD. Neck is supple CARDIOVASCULAR: Regular rate and rhythm. S1 and S2 no S3 or S4 RESPIRATORY: No accessory muscle use. Clear to auscultation. Breath sounds equal bilaterally. GASTROINTESTINAL: Abdomen soft, non-tender, nondistended. Hepatic and splenic margins not palpable. MUSCULOSKELETAL: Extremities without clubbing, cyanosis, or edema. No obvious deformities. NEUROLOGICAL: Awake and alert. No obvious cranial nerve deficits. Motor grossly within normal limits. Five out of 5 muscle strength in the arms and legs. Normal speech. PSYCHIATRIC: Appropriate mood and affect; insight and judgment normal. Medications and IVs Current Medications Ondansetron HCl (Zofran Inj) 4 mg ONCE ONCE IVP Last administered on 17:30; Start 08/11/17 at 17:30; Stop 08/11/17 at 17:31; Status DC Sodium Chloride (NS Flush) 2 ml UNSCH PRN IVF FLUSH AFTER USING IV ACCESS; Start 08/11/17 at 17:30; Stop 08/11/17 at 19:21; Status DC Sodium Chloride 1,000 ml @ 1,000 mls/hr Q1H ONCE IV Last administered on 17:22; Start 08/11/17 at 17:22; Stop 08/11/17 at 18:21; Status DC Dextrose (D50w (Vial) Inj) 50 ml STK-MED ONCE .ROUTE ; Start 08/11/17 at 18:16; Stop 08/11/17 at 18:17; Status DC Dextrose (D50w (Syr) Inj) 50 ml ONCE ONCE IV PUSH Last administered on 18:22; Start 08/11/17 at 18:30; Stop 08/11/17 at 18:31; Status DC Dextrose 1,000 ml @ 150 mls/hr Q6H40M IV Last administered on 08/11/17 18:27 ; Start 08/11/17 at 18:30; Stop 08/11/17 at 19:21; Status DC Fluoxetine HCl (PROzac) 40 mg DAILY PO Last administered on 08/17/17 09:22; Start 08/12/17 at 09:00 Fluticasone Propionate (Flonase Yared Spr) 1 spray BID EACH NARE Last administered on 08/17/17 09:21; Start 08/11/17 at 21:00 Pravastatin Sodium (Pravachol) 80 mg HS PO Last administered on 08/16/17 20:25 ; Start 08/11/17 at 21:00 Famotidine (Pepcid) 10 mg BID PO Last administered on 08/17/17 09:22; Start 08/11/17 at 21:00 Risperidone (risperDAL) 2 mg HS PO Last administered on 08/16/17 20:25; Start 08/11/17 at 21:00 Sodium Chloride 1,000 ml @ 84 mls/hr [id number] IV ; Start 08/11/17 at 19:01; Stop 08/11/17 at 19:10; Status DC Sodium Chloride (NS Flush) 2 ml UNSCH PRN IV FLUSH FLUSH AFTER USING IV ACCESS ; Start 08/11/17 at 19:15 Sodium Chloride (NS Flush) 2 ml BID IV FLUSH Last administered on 08/13/17 20: 14; Start 08/11/17 at 21:00 Acetaminophen (Tylenol) 650 mg Q6H PRN PO PAIN 1-10 AND/OR FEVER >101F; Start 08/11/17 at 19:15 Ondansetron HCl (Zofran Inj) 4 mg Q6H PRN IV PUSH NAUSEA OR VOMITING Last administered on 08/13/17 13:01; Start 08/11/17 at 19:15 Zolpidem Tartrate (Ambien) 5 mg HS PRN PO INSOMNIA; Start 08/11/17 at 19:15; Stop 08/13/17 at 16:19; Status DC Heparin Sodium (Porcine) (Heparin Inj) 5,000 units Q8H SQ Last administered on 08/17/17 05:10; Start 08/11/17 at 22:00 Miscellaneous Information 1 [id number] XX Last administered on 08/11/17 21:39; Start 08/11/17 at 19:15 Chlorhexidine Gluconate (Chlorhexidine 2% Cloth) Taper DAILY@04 TOP Last administered on 08/11/17 21:37; Start 08/12/17 at 04:00; Stop 08/08/18 at 03: 59 Chlorhexidine Gluconate (Chlorhexidine 2% Cloth) 3 pack UNSCH PRN TOP HYGIENIC CARE; Start 08/11/17 at 19:15 Senna/Docusate Sodium (Mara-Colace) 1 tab BID PO Last administered on 09:22; Start 08/11/17 at 21:00 Magnesium Hydroxide (Milk Of Magnesia Liq) 30 ml Q12H PRN PO Mild constipation Last administered on 08/16/17 09:00; Start 08/11/17 at 19:15 Sennosides (Senokot) 17.2 mg Q12H PRN PO Moderate constipation; Start 08/11/17 at 19:15 Bisacodyl (Dulcolax Supp) 10 mg DAILY PRN RECTAL SEVERE CONSITIPATION; Start 08/11/17 at 19:15 Lactulose (Lactulose Liq) 30 ml DAILY PRN PO SEVERE CONSITIPATION Last administered on 08/16/17 16:09; Start 08/11/17 at 19:15 Sodium Bicarbonate 150 meq/Dextrose 1,150 ml @ 75 mls/hr [id number] IV Last administered on 08/12/17 13:58; Start 08/11/17 at 20:00; Stop 08/12/17 at 18:24 ; Status DC Miscellaneous (Pill Splitter) 1 ea UNSCH PRN OTHER SEE LABEL COMMENTS; Start 08/11/17 at 19:45 Dextrose 1,000 ml @ 150 mls/hr Q6H40M IV Last administered on 08/12/17 06:16 ; Start 08/11/17 at 21:00; Stop 08/12/17 at 14:42; Status DC Dextrose (D50w (Vial) Inj) 50 ml UNSCH PRN IV PUSH HYPOGLYCEMIA - SEE COMMENTS ; Start 08/12/17 at 01:45; Stop 08/12/17 at 01:51; Status DC Dextrose (D50w (Syr) Inj) 100 ml STK-MED ONCE .ROUTE ; Start 08/12/17 at 01:39; Stop 08/12/17 at 01:40; Status DC Dextrose (D50w (Syr) Inj) 50 ml UNSCH PRN IV BLOOD SUGAR < 70 Last administered on 08/12/17 08:20; Start 08/12/17 at 02:00 Dextrose 500 ml @ 10 mls/hr Q24H IV Last administered on 08/12/17 23:57; Start 08/12/17 at 14:45; Stop 08/13/17 at 16:19; Status DC Sodium Chloride 1,000 ml @ 84 mls/hr [id number] IV Last administered on 05:11; Start 08/12/17 at 19:00 Prochlorperazine Edisylate (Compazine Inj) 5 mg Q6H PRN IV PUSH nausea Last administered on 08/13/17 09:02; Start 08/12/17 at 22:30 Insulin Aspart (NovoLOG SUPPLEMENTAL SCALE) 1 ACHS SLIDING SCALE SQ Last administered on 08/16/17 20:26; Start 08/16/17 at 12:00 Dextrose (D50w (Vial) Inj) 50 ml UNSCH PRN IV PUSH HYPOGLYCEMIA-SEE COMMENTS; Start 08/16/17 at 12:00 Glucagon (Glucagon Inj) 1 mg UNSCH PRN OTHER HYPOGLYCEMIA-SEE COMMENTS; Start 08/16/17 at 12:00 A/P Assessment and Plan In summary, this is a 57-year-old male admitted with acute kidney injury. The patient reports episodes of vomiting and inability to eat or drink prior to admission. Patient was also found to be severely hypoglycemic with a blood sugar of 45. He has been on metformin and glipizide outpatient. The patient's renal function is improving. Nephrology is following. Once renal functions acceptable by nephrology, he can be discharged. Acute kidney injury: Creatinine of 10 on presentation. - Nephrology following. He is nonoliguric. Creatinine is slowly improving. -Continue IV hydration - Strict I's and O's - Ultrasound of kidneys: Unremarkable. Minimal proteinuria. Serology and SPEP per nephrology. - Monitor electrolytes and creatinine level. Creatinine is slowly improving. Continues to improve but slowly IMPROVED DC TO HOME Diabetes mellitus - Hold all diabetic medications due to severe hypoglycemia--sliding scale coverage before meals and at bedtime with low-dose sliding scale IMPROVED Hypoglycemia - resolved. - glipizide highly renally cleared. likely unintentional overdose secondary to poor clearance. - Blood glucose 180 this morning. Start sliding scale insulin with Accu-Cheks. HOLD PO DM MEDS FOLLOW UP WITH [place] Anxiety/Depression - Fluoxetine - Risperidone High Cholesterol - Pravastatin Hypertension - Currently normotensive - Will use when necessary meds when indicated DVT GI prophylaxis - Teds SCDs - Subcutaneous heparin - Pepcid DC TO HOME [facility] NEPHROTOXINS AT DC Discharge Planning CLEARED BY RENAL DC TO HOME TODAY Gerardo Jose DO Aug 17, 2017 12:34
--- NOTE | 2017-08-17 12:39 | HHI.DS ---
Discharge Summary Admission Date Aug 11, 2017 at 18:45 Discharge Date: Aug 17, 2017 Admitting Diagnosis Acute renal failure; hypoglycemia (1) depression Diagnosis: Secondary Status: Acute (2) Acute renal failure ICD Code: N17.9 - Acute kidney failure, unspecified Diagnosis: Principal Status: Acute (3) Hypoglycemia ICD Code: E16.2 - Hypoglycemia, unspecified Diagnosis: Secondary Status: Acute (4) Depression ICD Code: F32.9 - Major depressive disorder, single episode, unspecified Diagnosis: Secondary Status: Acute Procedures NONE Brief History - From Admission 57-year-old male presents from the where he had a lab work and a routine visit done yesterday. He went back today for evaluation nausea and vomiting since Wednesday. He reports 3 episodes of vomiting in the past 24 hours. He was told that he has rhabdomyolysis and was sent here to the emergency department. He was also found to be severely hypoglycemic with a blood sugar at 45. The patient reports history of diabetes and is on metformin and glipizide. He has been taking his medications, but has not been eating due to nausea and vomiting. He states that he has been laying in bed and states this is due to his depression. Patient denies any headache. No fevers or chills. He denies any chest pain or shortness of breath. He denies any abdominal pain. CBC/BMP: 08/17/17 0759 08/17/17 0759 Significant Findings Laboratory Tests Test 08/14/17 16:47 08/15/17 02:09 08/16/17 00:00 08/16/17 08:25 Blood Urea Nitrogen 70 MG/DL (7-18) 63 MG/DL (7-18) Creatinine 5.90 MG/DL (0.60-1.30) 4.63 MG/DL (0.60-1.30) Random Glucose 133 MG/DL (74-106) 138 MG/DL (74-106) Sodium Level 133 MEQ/L (136-145) Chloride Level 94 MEQ/L (98-107) Carbon Dioxide Level 32.2 MEQ/L (21.0-32.0) 33.5 MEQ/L (21.0-32.0) Estimat Glomerular Filtration Rate 10 ML/MIN (>89) 13 ML/MIN (>89) Hemoglobin A1c 6.6 % (4.3-6.0) Albumin 3.35 GM/DL (3.50-5.00) Albumin/Globulin Ratio 1.14 (1.39-2.23) Udelj-9-Tiknavmdf 1.08 GM/DL (0.22-1.00) Complement C4 43 MG/DL (10-40) Test 08/16/17 12:50 08/17/17 07:59 Blood Urea Nitrogen 41 MG/DL (7-18) 32 MG/DL (7-18) Creatinine 1.98 MG/DL (0.60-1.30) 1.40 MG/DL (0.60-1.30) Random Glucose 156 MG/DL (74-106) 140 MG/DL (74-106) Albumin 3.1 GM/DL (3.4-5.0) 2.7 GM/DL (3.4-5.0) Estimat Glomerular Filtration Rate 35 ML/MIN (>89) 52 ML/MIN (>89) White Blood Count 11.9 TH/MM3 (4.0-11.0) Red Blood Count 4.25 MIL/MM3 (4.50-5.90) Hemoglobin 12.1 GM/DL (13.0-17.0) Hematocrit 36.2 % (39.0-51.0) Neutrophils (%) (Auto) 72.6 % (16.0-70.0) Monocytes (%) (Auto) 8.7 % (0.0-8.0) Eosinophils (%) (Auto) 4.2 % (0.0-4.0) Neutrophils # (Auto) 8.6 TH/MM3 (1.8-7.7) Monocytes # (Auto) 1.0 TH/MM3 (0-0.9) Eosinophils # (Auto) 0.5 TH/MM3 (0-0.4) Alkaline Phosphatase 44 U/L (45-117) Aspartate Amino Transf (AST/SGOT) 13 U/L (15-37) Imaging Last Impressions Renal Ultrasound 08/12/17 0000 Signed Impressions: Service Date/Time: August 13:22 - CONCLUSION: 1. Unremarkable ultrasound examination of the kidneys. 2. Bladder distention despite Albarado catheter placement as above Lj Benavides MD Chest X-Ray 08/11/17 1722 Signed Impressions: Service Date/Time: Friday, August 11, 2017 17:35 - CONCLUSION: No acute disease. Javon Garcia MD PE at Discharge GENERAL: Awake alert oriented 3 talkative and cooperative SKIN: Warm and dry. HEAD: Atraumatic. Normocephalic. EYES: Pupils equal and round. No scleral icterus. No injection or drainage. Extraocular muscles intact ENT: No nasal bleeding or discharge. Mucous membranes pink and moist. Tongue is midline NECK: Trachea midline. No JVD. Neck is supple CARDIOVASCULAR: Regular rate and rhythm. S1 and S2 no S3 or S4 RESPIRATORY: No accessory muscle use. Clear to auscultation. Breath sounds equal bilaterally. GASTROINTESTINAL: Abdomen soft, non-tender, nondistended. Hepatic and splenic margins not palpable. MUSCULOSKELETAL: Extremities without clubbing, cyanosis, or edema. No obvious deformities. NEUROLOGICAL: Awake and alert. No obvious cranial nerve deficits. Motor grossly within normal limits. Five out of 5 muscle strength in the arms and legs. Normal speech. PSYCHIATRIC: Appropriate mood and affect; insight and judgment normal. Hospital Course 57-year-old male presents from the where he had a lab work and a routine visit done yesterday. He went back today for evaluation nausea and vomiting since Wednesday. He reports 3 episodes of vomiting in the past 24 hours. He was told that he has rhabdomyolysis and was sent here to the emergency department. He was also found to be severely hypoglycemic with a blood sugar at 45. The patient reports history of diabetes and is on metformin and glipizide. He has been taking his medications, but has not been eating due to nausea and vomiting. He states that he has been laying in bed and states this is due to his depression. Patient denies any headache. No fevers or chills. He denies any chest pain or shortness of breath. He denies any abdominal pain. 11-6 Follow-up acute renal failure Creatinine continues to improve Discussed with patient and RN A.m. labs Hopefully home in next 24-48 hours Accu-Cheks before meals and at bedtime 11-7 CR DOWN TO 1.40 DW RENAL CAN DC TO HOME TODAY AVOID NEPHROTOXINS FOLLOW UP WITH [facility] Pt Condition on Discharge: Good Discharge Disposition: Discharge Home Discharge Time: <= 30 minutes Discharge Instructions DIET: Follow Instructions for: Heart Healthy Diet, Diabetic Diet Speech Therapy-Diet Recommends: Regular Activities you can perform: Regular-No Restrictions Follow up Referrals: PCP Follow-up - 08/18/17 @ [facility] Continued Medications: Fluoxetine (Fluoxetine) 20 Mg Capsule 40 MG PO DAILY, CAP 0 Refills Fluticasone Nasal [place] (Fluticasone Nasal [place]) 50 Mcg/Act Naspr 50 MCG EACH NARE BID for Allergy Management, BOTTLE 0 Refills 50 mcg/spray Pravastatin (Pravastatin) 80 Mg Tab 80 MG PO HS for Cholesterol Management, TAB 0 Refills Ranitidine (Ranitidine) 150 Mg Tab 150 MG PO BID for Heartburn Management, TAB 0 Refills Risperidone (Risperidone) 2 Mg Tab 2 MG PO HS, TAB 0 Refills Discontinued Medications: Glipizide (Glipizide) 5 Mg Tab 2.5 MG PO BIDAC for Blood Sugar Management, TAB 0 Refills Take 30 minutes before a meal Hydrochlorothiazide (Hydrochlorothiazide) 12.5 Mg Tab 12.5 MG PO DAILY, TAB 0 Refills Losartan (Losartan) 50 Mg Tab 50 MG PO DAILY for Blood Pressure Management, TAB 0 Refills Metformin (Metformin) 1,000 Mg Tab 1000 MG PO BIDPC for Blood Sugar Management, TAB 0 Refills Gerardo Jose DO Aug 17, 2017 12:39
--- NOTE | 2017-08-17 14:10 | HHI.NPPN ---
Subjective History of Present Illness 57-year-old male with past medical history of anxiety, depression, hyperlipidemia, hypertension, diabetes mellitus who was brought to the hospital because of abnormal labs sent from [place]. I was called to see the patient because of very high BUN and creatinine. The patient has a BUN of 63 and a creatinine of 10 on presentation. Additional Remarks Patient is alert, no SOB, feeling better, eating well, no vomiting. Review of Systems General Constitutional: Fatigue Cardiovascular Cardiac: GIBSON Objective Data Data Vital Signs Date Time Temp Pulse Resp B/P (MAP) Pulse Ox O2 Delivery O2 Flow Rate FiO2 08/17/17 12:00 97.0 73 19 160/86 (110) 93 08/17/17 08:00 98.8 76 17 193/88 (123) 93 08/17/17 05:37 96.5 76 18 161/79 (106) 95 08/17/17 00:00 96.6 79 20 163/80 (107) 93 08/16/17 20:00 97.5 79 18 162/83 (109) 93 08/16/17 16:00 97.4 90 18 158/84 (108) 93 -: 08/17/17 0759 08/17/17 0759 Physical Exam General Appearance: No Acute Distress, Comfortable Eyes Eye Exam: Pupils Equal Throat Throat Exam: Oral Mucosa [place] & Moist Neck Neck Exam: Neck Supple Pulmonary Resp Exam: Breath Sounds Equal, Rhonchi, Decreased Bases, Diminished Breath Sounds Cardiology CV Exam: Regular, Normal Sinus Rhythm Gastrointestinal/Abdomen GI Exam: Soft, Non-Tender, Distended Extremeties Extremities Exam: Trace Edema Neurologic Neuro Exam: Alert, Awake, Oriented Psychiatric Psych Exam: Appropriate Responses Assessment/Plan Assessment Summary: JEFFY/Acute Renal Failure Problem List: (1) Depression ICD Codes: F32.9 - Major depressive disorder, single episode, unspecified Status: Acute (2) Hypoglycemia ICD Codes: E16.2 - Hypoglycemia, unspecified Status: Acute (3) Acute renal failure ICD Codes: N17.9 - Acute kidney failure, unspecified Status: Acute Plan Patient has been non oliguric. Renal U/S noted. Has minimal proteinuria, Creatinine is slowly improving. continue IVF, avoid Nephrotoxins. Follow the urine out put and BMP. Complements not low, SPEP and ENDER negative, ANCA is pending. Creatinine decrease to 1.4. Patient for D/C, he will follow in [place] and can be referred to Nephrology if needed. Problem Qualifiers (1) Acute renal failure: Qualified Codes: N17.9 - Acute kidney failure, unspecified Fifi Wheeler MD Aug 17, 2017 14:10
--- NOTE | 2017-08-17 14:10 | HHI.NPPN ---
Subjective History of Present Illness 57-year-old male with past medical history of anxiety, depression, hyperlipidemia, hypertension, diabetes mellitus who was brought to the hospital because of abnormal labs sent from [place]. I was called to see the patient because of very high BUN and creatinine. The patient has a BUN of 63 and a creatinine of 10 on presentation. Additional Remarks Patient is alert, no SOB, feeling better, eating well, no vomiting. Review of Systems General Constitutional: Fatigue Cardiovascular Cardiac: GIBSON Objective Data Data Vital Signs Date Time Temp Pulse Resp B/P (MAP) Pulse Ox O2 Delivery O2 Flow Rate FiO2 08/17/17 12:00 97.0 73 19 160/86 (110) 93 08/17/17 08:00 98.8 76 17 193/88 (123) 93 08/17/17 05:37 96.5 76 18 161/79 (106) 95 08/17/17 00:00 96.6 79 20 163/80 (107) 93 08/16/17 20:00 97.5 79 18 162/83 (109) 93 08/16/17 16:00 97.4 90 18 158/84 (108) 93 -: 08/17/17 0759 08/17/17 0759 Physical Exam General Appearance: No Acute Distress, Comfortable Eyes Eye Exam: Pupils Equal Throat Throat Exam: Oral Mucosa [place] & Moist Neck Neck Exam: Neck Supple Pulmonary Resp Exam: Breath Sounds Equal, Rhonchi, Decreased Bases, Diminished Breath Sounds Cardiology CV Exam: Regular, Normal Sinus Rhythm Gastrointestinal/Abdomen GI Exam: Soft, Non-Tender, Distended Extremeties Extremities Exam: Trace Edema Neurologic Neuro Exam: Alert, Awake, Oriented Psychiatric Psych Exam: Appropriate Responses Assessment/Plan Assessment Summary: JEFFY/Acute Renal Failure Problem List: (1) Depression ICD Codes: F32.9 - Major depressive disorder, single episode, unspecified Status: Acute (2) Hypoglycemia ICD Codes: E16.2 - Hypoglycemia, unspecified Status: Acute (3) Acute renal failure ICD Codes: N17.9 - Acute kidney failure, unspecified Status: Acute Plan Patient has been non oliguric. Renal U/S noted. Has minimal proteinuria, Creatinine is slowly improving. continue IVF, avoid Nephrotoxins. Follow the urine out put and BMP. Complements not low, SPEP and ENDER negative, ANCA is pending. Creatinine decrease to 1.4. Patient for D/C, he will follow in [place] and can be referred to Nephrology if needed. Problem Qualifiers (1) Acute renal failure: Qualified Codes: N17.9 - Acute kidney failure, unspecified Fifi Wheeler MD Aug 17, 2017 14:10
--- NOTE | 2017-08-17 14:10 | HHI.NPPN ---
Subjective History of Present Illness 57-year-old male with past medical history of anxiety, depression, hyperlipidemia, hypertension, diabetes mellitus who was brought to the hospital because of abnormal labs sent from [place]. I was called to see the patient because of very high BUN and creatinine. The patient has a BUN of 63 and a creatinine of 10 on presentation. Additional Remarks Patient is alert, no SOB, feeling better, eating well, no vomiting. Review of Systems General Constitutional: Fatigue Cardiovascular Cardiac: [place] Objective Data Data Vital Signs Date Time Temp Pulse Resp B/P (MAP) Pulse Ox O2 Delivery O2 Flow Rate FiO2 08/17/17 12:00 97.0 73 19 160/86 (110) 93 08/17/17 08:00 98.8 76 17 193/88 (123) 93 08/17/17 05:37 96.5 76 18 161/79 (106) 95 08/17/17 00:00 96.6 79 20 163/80 (107) 93 08/16/17 20:00 97.5 79 18 162/83 (109) 93 08/16/17 16:00 97.4 90 18 158/84 (108) 93 -: 08/17/17 0759 08/17/17 0759 Physical Exam General Appearance: No Acute Distress, Comfortable Eyes Eye Exam: Pupils Equal Throat Throat Exam: Oral Mucosa [place] & Moist Neck Neck Exam: Neck Supple Pulmonary Resp Exam: Breath Sounds Equal, Rhonchi, Decreased Bases, Diminished Breath Sounds Cardiology CV Exam: Regular, Normal Sinus Rhythm Gastrointestinal/Abdomen GI Exam: Soft, Non-Tender, Distended Extremeties Extremities Exam: Trace Edema Neurologic Neuro Exam: Alert, Awake, Oriented Psychiatric Psych Exam: Appropriate Responses Assessment/Plan Assessment Summary: JEFFY/Acute Renal Failure Problem List: (1) Depression ICD Codes: F32.9 - Major depressive disorder, single episode, unspecified Status: Acute (2) Hypoglycemia ICD Codes: E16.2 - Hypoglycemia, unspecified Status: Acute (3) Acute renal failure ICD Codes: N17.9 - Acute kidney failure, unspecified Status: Acute Plan Patient has been non oliguric. Renal U/S noted. Has minimal proteinuria, Creatinine is slowly improving. continue IVF, avoid Nephrotoxins. Follow the urine out put and BMP. Complements not low, SPEP and ENDER negative, ANCA is pending. Creatinine decrease to 1.4. Patient for D/C, he will follow in [place] and can be referred to Nephrology if needed. Problem Qualifiers (1) Acute renal failure: Qualified Codes: N17.9 - Acute kidney failure, unspecified Fifi Wheeler MD Aug 17, 2017 14:10
[2017-08-17 16:48] LABS: HEMOGLOBIN A1C 6.6 % (4.3-6.0)
== END 2017-08-17 15:12 | disposition home or self-care (01) | DRG 683 ==
LOC: NEPE 17:04 → NEDA 18:45 → HIME 20:20 → N07B 08-13 20:58
PROVIDERS: ADMIT Hospitalist; ATTEND Hospitalist
DX: N17.9 Acute kidney failure, unspecified (principal); E87.2 Acidosis; M62.82 Rhabdomyolysis; E11.649 Type 2 diabetes mellitus with hypoglycemia without coma; I10 Essential (primary) hypertension; E78.5 Hyperlipidemia, unspecified; F41.8 Other specified anxiety disorders; Z87.891 Personal history of nicotine dependence; E86.0 Dehydration; T50.901A Poisoning by unspecified drugs, medicaments and biological substances, accidental (unintentional), initial encounter; Y92.9 Unspecified place or not applicable
CPT/HCPCS: 71010; 76775; 80048; 80053; 81001; 82550; 82947; 82948; 83036; 83735; 84100; 84165; 84439; 84443; 84484; 85025; 86021; 86038; 86160; 87641; 93005; 96361; 96374; 96375; J0780; J1644; J1815; J2405; J7030; J7070

== ENCOUNTER 2017-11-06 12:47 | Emergency (ER) | payer OTHER ==
[~2017-11-06] VITALS: Ht 182.9 cm; Wt 113.6 kg
[~2017-11-06 12:47] MED LIST changes: -ASPI81TA82 PO; -DIPH50TA PO; +FLUO20CA12 PO; +FLUT50SP EACH NARE; -FLUV100C PO; -GLIP5 PO; -HYDR12.56 PO; -HYDR1CAP30 PO; -LOSA100T PO; -METF500 PO; -NICO2GUM68 TOP; -ONDA4TAB7 PO; -PRAV40TA2 PO; +PRAV80TA2 PO; +RANI150T PO; +RISP2TAB2 PO; -TRIA0.02 TOP
--- NOTE | 2017-11-06 13:07 | PD ---
HPI Chief Complaint: Syncope/Near-Syncope Time Seen by Provider: 13:07 Travel History International Travel<30 days: No Contact w/Intl Traveler<30days: No Traveled to known affect area: No History of Present Illness HPI 57-year-old male came to the emergency room with history of syncopal episode today while he was power washing the driveway. Patient says that he has had dizzy spells in the past and he felt like he was going to pass out but didn't quite pass out. In fact in the beginning of last year he did have a Holter monitor that he had on for about a week or 2 that was ordered by his primary care. He was not call back for any other tests or treatment after he turned the Holter monitor over to his primary care. Patient says that today he felt like he was blacking out and held onto the car that was on the driveway. After which she lost his balance and went down on the floor. However patient denies losing consciousness completely. He was aware of what was going on. His father found him like that on the driveway he called 911. EMS brought him in. Bedside blood sugar here was 131. Patient is diabetic and took metformin this morning after which she ate some oatmeal his breakfast. Patient denies any chest pain. He denies hitting his head when he fell onto the ground. Currently is awake and talking and answering questions appropriately. His blood pressure was 100/67. [facility] Past Medical History Narrative Medical List of his past medical, surgical, social and family history is reviewed from the nursing note. Anxiety: Yes Depression: Yes Cardiovascular Problems: Yes (HTN) High Cholesterol: Yes Diabetes: Yes Diminished Hearing: No Genitourinary: No Hypertension: Yes Musculoskeletal: No Neurologic: No Reproductive: No Respiratory: No Triglycerides - High: Yes Social History Alcohol Use: No Tobacco Use: No (QUIT 1986) Substance Use: No (PATIENT DENIES) Allergies-Medications (Allergen,Severity, Reaction): Coded Allergies: lisinopril (Unverified Adverse Reaction, Intermediate, DIZZINESS, 08/11/17) [facility] Comments List of his allergies reviewed from the nursing note. Reported Meds & Prescriptions Reported Meds & Active Scripts Active Augmentin (Amoxicillin-Clavulanate) 500-125 mg Tab 500 Mg PO BID [address] (Duloxetine HCl) 20 Mg Capdr 20 Mg PO DAILY Metformin (Metformin HCl) 500 Mg Tab Unknown Dose PO DAILY With a meal Losartan (Losartan Potassium) 25 Mg Tab Unknown Dose PO DAILY Pravastatin 80 Mg Tab 80 Mg PO HS Fluoxetine (Fluoxetine HCl) 20 Mg Capsule 40 Mg PO DAILY Narrative Medication List of his home medications reviewed from the nursing note. Review of Systems Except as stated in HPI: all other systems reviewed are Neg Neurologic: Positive: Syncope Physical Exam Narrative GENERAL: Awake, alert, disheveled, no obvious distress SKIN: Focused skin assessment warm/dry. HEAD: Atraumatic. Normocephalic. EYES: Pupils equal and round. No scleral icterus. No injection or drainage. ENT: No nasal bleeding or discharge. Mucous membranes pink and moist. NECK: Trachea midline. No JVD. CARDIOVASCULAR: Regular rate and rhythm. No murmur appreciated. RESPIRATORY: No accessory muscle use. Clear to auscultation. Breath sounds equal bilaterally. GASTROINTESTINAL: Abdomen soft, non-tender, nondistended. Hepatic and splenic margins not palpable. MUSCULOSKELETAL: No obvious deformities. No clubbing. No cyanosis. No edema. NEUROLOGICAL: Awake and alert. No obvious cranial nerve deficits. Motor grossly within normal limits. Normal speech. PSYCHIATRIC: Appropriate mood and affect; insight and judgment normal. Data Data Last Documented VS Vital Signs Date Time Temp Pulse Resp B/P (MAP) Pulse Ox O2 Delivery O2 Flow Rate FiO2 11/06/17 17:12 97.7 79 121/79 (93) 97 11/06/17 15:55 17 Room Air Orders Orders Electrocardiogram (11/06/17 13:16) Basic Metabolic Panel (Bmp) (11/06/17 13:16) Complete Blood Count With Diff (11/06/17 13:16) Troponin I (11/06/17 13:16) Chest, Single Ap (11/06/17 13:16) Ct Brain W/O Iv Contrast(Rout) (11/06/17 13:16) Ecg Monitoring (11/06/17 13:16) Iv Access Insert/Monitor (11/06/17 13:16) Oximetry (11/06/17 13:16) Sodium Chloride 0.9% Flush (Ns Flush) (11/06/17 13:30) Sodium Chlor 0.9% 1000 Ml Inj (Ns 1000 M (11/06/17 13:16) Ampicillin-Sulbactam Inj (Unasyn Inj) (11/06/17 14:45) Sodium Chlor 0.9% 1000 Ml Inj (Ns 1000 M (11/06/17 14:45) Ed Discharge Order (11/06/17 15:48) Labs Laboratory Tests Test 11/06/17 13:00 White Blood Count 8.7 TH/MM3 Red Blood Count 4.55 MIL/MM3 Hemoglobin 12.6 GM/DL Hematocrit 39.0 % Mean Corpuscular Volume 85.6 FL Mean Corpuscular Hemoglobin 27.8 PG Mean Corpuscular Hemoglobin Concent 32.5 % Red Cell Distribution Width 12.1 % Platelet Count 240 TH/MM3 Mean Platelet Volume 8.5 FL Neutrophils (%) (Auto) 72.6 % Lymphocytes (%) (Auto) 16.3 % Monocytes (%) (Auto) 6.5 % Eosinophils (%) (Auto) 4.0 % Basophils (%) (Auto) 0.6 % Neutrophils # (Auto) 6.3 TH/MM3 Lymphocytes # (Auto) 1.4 TH/MM3 Monocytes # (Auto) 0.6 TH/MM3 Eosinophils # (Auto) 0.3 TH/MM3 Basophils # (Auto) 0.1 TH/MM3 CBC Comment DIFF FINAL Differential Comment Blood Urea Nitrogen 14 MG/DL Creatinine 0.70 MG/DL Random Glucose 106 MG/DL Calcium Level 8.3 MG/DL Sodium Level 138 MEQ/L Potassium Level 4.4 MEQ/L Chloride Level 103 MEQ/L Carbon Dioxide Level 29.2 MEQ/L Anion Gap 6 MEQ/L Estimat Glomerular Filtration Rate 116 ML/MIN Troponin I LESS THAN 0.02 NG/ML MDM Medical Decision Making Medical Screen Exam Complete: Yes Emergency Medical Condition: Yes Medical Record Reviewed: Yes Interpretation(s) Twelve-lead EKG was reviewed by me. Normal sinus rhythm, normal axis, nonspecific ST-T wave changes. Heart rate of 82 bpm. Differential Diagnosis Electrolyte abnormality, orthostatic hypotension, dehydration, intracranial bleed Narrative Course 2:46 PM the nurse initially did orthostatic vital signs and patient was profoundly hypotensive upon standing up although he denied of any lightheadedness. Please refer to the nursing note. I ordered 1 L of IV fluid bolus and workup. Blood test results of back and within normal limit. Head CT is negative. Chest x-rays pending. His repeat orthostatic vital signs have significantly improved the patient is not orthostatic anymore. Meanwhile CT scan of the head showed significant pansinusitis. I've ordered a dose of IV Unasyn and another liter of IV fluid bolus. Awaiting for the chest x-ray. If that's negative I think patient should be able to go home. Procedures EKG Prior to Arrival: No Diagnosis Primary Impression: Orthostatic hypotension Additional Impressions: Near syncope Pansinusitis Qualified Codes: J01.40 - Acute pansinusitis, unspecified Dehydration Referrals: Primary Care Physician 2 days Additional Instructions: He should stop taking your blood pressure medicine for tomorrow and thereafter and should be seen by primary care to recheck the blood pressure. Take lots of fluid. Take antibiotic as per the prescription direction. Return to the ER if condition worsens or any other new concerns. Med/Other Pt SpecificInfo: Prescription(s) given Scripts Amoxicillin-Clavulanate (Augmentin) 500-125 mg Tab 500 MG PO BID for Infection for 10 Days, TAB 0 Refills Prov: Davis Fritz MD 11/06/17 Disposition: 01 DISCHARGE HOME Condition: Stable Davis Frtiz MD Nov 06, 2017 13:07
[2017-11-06] MEDS ORDERED: DULO1CAP PO (13:10)
[2017-11-06] MEDS ORDERED: METF500T PO (13:10)
[2017-11-06] MEDS ORDERED: LOSA25TA PO (13:10)
[2017-11-06] MEDS ORDERED: SODIUM CHLOR 0.9% 1000 ML INJ 1,000 ML IV ONE ×2 (13:16→14:45)
[2017-11-06] MEDS ORDERED: SODIUM CHLORIDE 0.9% FLUSH 10 ML FLUSH IVF PRN (13:30)
[2017-11-06 13:46] VITALS: O2SAT 95
[2017-11-06 13:57] LABS: AUTOMATED NEUTROPHIL # 6.3 TH/MM3 (1.8-7.7); BASOPHIL # 0.1 TH/MM3 (0-0.2); BASOPHIL % 0.6 % (0.0-2.0); EOSINOPHIL # 0.3 TH/MM3 (0-0.4); HEMOGLOBIN 12.6 GM/DL (13.0-17.0); LYMPH % 16.3 % (9.0-44.0); LYMPHOCYTE # 1.4 TH/MM3 (1.0-4.8); MEAN CELL VOLUME 85.6 FL (80.0-100.0); MEAN CORPUSCULAR HEMOGLOBIN 27.8 PG (27.0-34.0); MEAN CORPUSCULAR HGB CONC 32.5 % (32.0-36.0); MEAN PLATELET VOLUME 8.5 FL (7.0-11.0); MONO % 6.5 % (0.0-8.0); MONOCYTE # 0.6 TH/MM3 (0-0.9); NEUT % 72.6 % (16.0-70.0); PLATELET COUNT 240 TH/MM3 (150-450); RED BLOOD COUNT 4.55 MIL/MM3 (4.50-5.90); RED CELL DISTRIBUTION WIDTH 12.1 % (11.6-17.2); WHITE BLOOD COUNT 8.7 TH/MM3 (4.0-11.0)
[2017-11-06 14:00] VITALS: BP 100/67; PULSE 84; RESP 18; O2SAT 97
[2017-11-06 14:10] LABS: CHLORIDE 103 MEQ/L (98-107); SODIUM (NA) 138 MEQ/L (136-145)
[2017-11-06 14:13] LABS: BICARBONATE 29.2 MEQ/L (21.0-32.0); BLOOD UREA NITROGEN 14 MG/DL (7-18); CALCIUM 8.3 MG/DL (8.5-10.1); GLUCOSE,RANDOM 106 MG/DL (74-106)
[2017-11-06 14:17] LABS: GLOMERULAR FILTRATION RATE 116 ML/MIN (>89)
[2017-11-06 14:21] LABS: TROPONIN I LESS THAN 0.02 NG/ML (0.02-0.05)
--- NOTE | 2017-11-06 14:31 | RADRPT ---
EXAM DATE/TIME: 11/06/2017 14:08 [facility] COMPARISON: No previous studies available for comparison. INDICATIONS : Dizziness, near syncope. RADIATION DOSE: 62.21 CTDIvol (mGy) MEDICAL HISTORY : Cardiovascular disease. Hypercholesterolemia. Hypertension.Renal failure, diabetes SURGICAL HISTORY : None. ENCOUNTER: Initial ACUITY: 1 day PAIN SCALE: 0/10 LOCATION: cranial TECHNIQUE: Multiple contiguous axial images were obtained of the head. Using automated exposure control and adj ustment of the mA and/or kV according to patient size, radiation dose was kept as low as reasonably a chievable to obtain optimal diagnostic quality images. DICOM format image data is available electro nically for review and comparison. FINDINGS: CEREBRUM: The ventricles are normal for age. No evidence of midline shift, mass lesion, hemorrhage or acute in farction. No extra-axial fluid collections are seen. POSTERIOR FOSSA: The cerebellum and brainstem are intact. The 4th ventricle is midline. The cerebellopontine angle i s unremarkable. EXTRACRANIAL: Moderate-sized air-fluid levels in the maxillary sinuses. Severe opacification of the ethmoid and fro ntal sinuses. SKULL: The calvaria is intact. No evidence of skull fracture. CONCLUSION: 1. No acute intracranial findings. 2. Severe frontal, ethmoid, and maxillary sinusitis. Martin Sage MD on November 06, 2017 at 14:27 Board Certified Radiologist. This report was verified electronically.
[2017-11-06 14:41] VITALS: BP_SYST 115; BP_SYST 117; BP_SYST 126; BP_DIAS 64; BP_DIAS 67; BP_DIAS 78; RESP 16; RESP 18
[2017-11-06] MEDS ORDERED: AMPICILLIN-SULBACTAM INJ 3 GM in SODIUM CHLORIDE 0.9% INJ 100 ML IV ONE (14:45)
[2017-11-06 14:50] VITALS: BP 110/70; PULSE 79; RESP 17; O2SAT 98
--- NOTE | 2017-11-06 15:30 | RADRPT ---
EXAM DATE/TIME: 11/06/2017 14:41 [facility] COMPARISON: CHEST SINGLE AP, August 11, 2017, 17:35. INDICATIONS : Syncope, palpitations MEDICAL HISTORY : None. SURGICAL HISTORY : None. ENCOUNTER: Initial ACUITY: 1 day PAIN SCORE: 0/10 LOCATION: Bilateral chest FINDINGS: Single AP view of the chest. The lungs are clear. Cardiomediastinal silhouette within normal limits. No evidence of pleural effusion or pneumothorax. CONCLUSION: No acute cardiopulmonary disease identified. Martin Sage MD on November 06, 2017 at 15:27 Board Certified Radiologist. This report was verified electronically.
[2017-11-06] MEDS ORDERED: AUGM500T7 PO (15:49)
[2017-11-06 15:55] VITALS: BP 110/70; PULSE 78; RESP 17; O2SAT 97
[2017-11-06 17:12] VITALS: BP 121/79; TEMP 97.7
--- NOTE | 2017-11-07 12:22 | EKG ---
Date Performed: 11/06/2017 Time Performed: 13:42:27 PTAGE: 57 years EKG: Sinus rhythm LOW QRS VOLTAGE IN PRECORDIAL LEADS BORDERLINE ECG WARNING: DATA QUALITY MAY AFFECT INTERPRETATION PREVIOUS TRACING : 08/12/2017 01.10 Since the prior tracing, there has been no significan t change DOCTOR: Prudencio Dao Interpretating Date/Time 11/07/2017 12:20:12
== END 2017-11-06 17:16 | disposition home or self-care (01) ==
LOC: PHED 12:47
DX: I95.1 Orthostatic hypotension (principal); R55 Syncope and collapse; J01.40 Acute pansinusitis, unspecified; E86.0 Dehydration; R94.31 Abnormal electrocardiogram [ECG] [EKG]; I10 Essential (primary) hypertension; E11.9 Type 2 diabetes mellitus without complications
CPT/HCPCS: 70450; 71045; 80048; 84484; 85025; 93005; 96374; 99285; J0295; J7030